=== PATIENT | female | born 1955 | race Caucasian/White ===

== ENCOUNTER → 2021-06-15 13:03 | Outpatient (BNVA) | payer MEDICARE, SELFPAY | PROVIDERS: Visit Provider Nurse Practitioner Family | DX: Z13.6 Encounter for screening for cardiovascular disorders (principal); Z12.4 Encounter for screening for malignant neoplasm of cervix; R53.83 Other fatigue | CPT/HCPCS: 80053; 80061; 82306; 82607; 83735; 84439; 84443; 85025; 87624 ==

== ENCOUNTER 2021-07-01 08:18 | Outpatient (CLI) | payer MEDICARE, SELFPAY ==
--- NOTE | 2021-07-01 09:00 | MM_ITS ---
WS: [id number] BILATERAL DIGITAL SCREENING MAMMOGRAPHY WITH CAD CLINICAL INFORMATION: Z12.39 - Encounter for other screening for malignant neop... HISTORY: Screening mammogram. Occasional breast pain and soreness COMPARISON: None. TECHNIQUE: Bilateral CC and MLO views. FINDINGS: Scattered fibroglandular densities bilaterally. Punctate and lucent centered calcifications. No suspi cious focal mass, asymmetry, calcifications, or architectural distortion. No evidence of malignancy. MM/[place] [id number] IMPRESSION: BI-RADS: 2-Benign FOLLOW UP: 1 Year Follow-up Recommend return to annual screening mammography.
== END 2021-07-01 08:19 | disposition home or self-care (01) ==
LOC: RADSHAW 08:21
PROVIDERS: PCP Nurse Practitioner Family; Visit Provider Nurse Practitioner Family
DX: Z12.39 Encounter for other screening for malignant neoplasm of breast (principal)
CPT/HCPCS: 77067

== ENCOUNTER 2021-07-09 10:28 | Outpatient (CLI) | payer MEDICARE, SELFPAY ==
--- NOTE | 2021-07-09 15:15 | XR_ITS ---
WS: [id number] Exam: XR DEXA axial skeleton* [id number] Date/Time of Exam: 07/09/2021 10:35 AM Reason For Exam: Z78.0 - Asymptomatic menopausal state DEXA BONE DENSITOMETRY [employer] DEXA BONE DENSITOMETRY [employer] The L1-L4 bone mineral density measures 0.921 g/cm2. This corresponds to a T score of -2.2 and Z scor e of -1.3. Left femoral neck bone mineral density measures 1.047 g/cm2. This corresponds to T score of 0.3 and Z score of 1.1. Right femoral neck bone mineral density measures 1.009 g/cm2. This corresponds to a T score of 0.0 an d Z score of 0.8. Mean femoral neck bone mineral density measures 1.028 g/cm2. This corresponds to a T score of 0.2 and Z score of 0.9 XR/XR DEXA axial skeleton* [id number] IMPRESSION: Bone mineral density lies in the osteopenic range. Refer to detailed summary.
== END 2021-07-09 10:29 | disposition home or self-care (01) ==
PROVIDERS: PCP Nurse Practitioner Family; Visit Provider Nurse Practitioner Family
DX: Z78.0 Asymptomatic menopausal state (principal)
CPT/HCPCS: 77080

== ENCOUNTER → 2021-09-13 09:05 | Outpatient (BNVA) | payer MEDICARE, SELFPAY | PROVIDERS: PCP Nurse Practitioner Family; Visit Provider Surgery | DX: Z01.812 Encounter for preprocedural laboratory examination (principal); Z20.822 Contact with and (suspected) exposure to COVID-19 | CPT/HCPCS: 87635 ==

== ENCOUNTER 2021-09-16 08:02 | Day surgery (SDC) | payer MEDICARE, SELFPAY ==
[2021-09-13 13:50] VITALS: BMI 34.3
[2021-09-16 08:52] VITALS: BP 147/95; PULSE 93; RESP 16; TEMP 36.6; O2SAT 98
[2021-09-16] MEDS: sodium chloride 0.9% 1,000 ML 30 ML IV (08:58)
--- NOTE | 2021-09-16 09:09 | ANES.PREANE2 ---
Pre-Anesthetic Assessment Height/Weight: Height 1.63 m Weight 90.718 kg Temp Pulse Resp BP Pulse Ox 97.8 F 93 16 147/95 98 09/16/21 08:52 09/16/21 08:52 09/16/21 08:52 09/16/21 08:52 09/16/21 08:52 Operation Date: 09/16/21 09:30 Proposed Procedures p Colonoscopy 91744 Z12.11(Not Applicable) - Adeel Ann MD Was Beta Reagan taken within 24 hours: N/A Was Clonidine taken within 24 hours: N/A Last intake: Intake Last Liquid Date 09/15/21 Last Liquid Time 22:00 Last Solid Date 09/14/21 Last Solid Time 19:00 Social No alcohol and No tobacco Exam alert, oriented x 3, clear to auscultation bilaterally and regular rate & rhythm Airway Submandibular: within normal limits Cervical ROM: within normal limits Mallampati: Class II Dentition: false History/ROS No significant history except as noted Metabolic Morbid Obesity Anesthetic Plan ASA status: 2 Anesthesia: MAC Risk of > 500 ml blood loss (7ml/kg in children): No Medications/Allergies Home Medications Medication Instructions Recorded Confirmed Last Taken Type cholecalciferol (vitamin D3) 50 50 mcg PO DAILY #90 cap 06/22/21 09/16/21 09/13/21 Rx mcg (2,000 unit) capsule Allergies Allergy/AdvReac Type Severity Reaction Status Date / Time No Known Allergies Allergy Verified 09/01/21 14:49 Current Medications Generic Name Dose Route Start Last Admin Trade Name Freq PRN Reason Stop Dose Admin Sodium Chloride 1,000 mls @ 30 mls/hr 09/16/21 08:15 09/16/21 08:58 Sodium Chloride 0.9% IV 09/17/21 08:14 30 mls/hr .Q24H DEAN Administration PFSH Anesthesia Medical History No pertinent past medical history Surgical History History of cholecystectomy History of tubal ligation Family History Father Cancer Sister Diabetes Hypertension Brother Hypertension Social History Smoking and tobacco status: current every day smoker Alcohol intake: never Household members: spouse Housing: House Marital status: Number of children: 3 Data Anesthesia Cardiac Studies: No Data to Display
--- NOTE | 2021-09-16 09:26 | W.PM.OPSFHP ---
Same Day Surgery H&P Indication for Procedure/HPI DATE OF PROCEDURE: September 16, 2021 CHIEF COMPLAINT/INDICATIONFOR SURGICAL PROCEDURE: Screening colonoscopy PREOP DIAGNOSIS: Screening colonoscopy PLANNED PROCEDURE: Operation Date: 09/16/21 09:30 Proposed Procedures p Colonoscopy 21728 Z12.11(Not Applicable) - Adeel Ann MD This is a pleasant 66 years old female patient presents to my practice for screening colonoscopy, patient denies any family history of colon cancer or bleeding per rectum or nonintentional weight loss ROS All systems have been reviewed negative except as per the above per problem list Medications/Allergies* Allergies/Adverse Reactions Allergy/AdvReac Type Severity Reaction Status Date / Time No Known Allergies Allergy Verified 09/16/21 09:26 Current Medications: Generic Name Dose Route Start Last Admin Trade Name Freq PRN Reason Stop Dose Admin Sodium Chloride 1,000 mls @ 30 mls/hr 09/16/21 08:15 09/16/21 08:58 Sodium Chloride 0.9% IV 09/17/21 08:14 30 mls/hr .Q24H DEAN Administration Pertinent History/Comorbid Conditions* Medical History (Updated 09/01/21 @ 14:47 by HI Romero) No pertinent past medical history Surgical History (Updated 06/15/21 @ 10:01 by HI Romero) History of cholecystectomy History of tubal ligation Family History (Updated 06/15/21 @ 09:57 by Patrizia Eugene LPN, RT) Diabetes Sister Cancer Father Hypertension Sister Brother Social History Smoking and tobacco status: current every day smoker Alcohol intake: never Household members: spouse Housing: House Marital status: Number of children: 3 Pertinent Exam Findings alert, oriented x 3, clear to auscultation bilaterally, regular rate & rhythm and operative site marked (Abdominal examination nontender nondistended soft) Recommendations Surgery/Procedure today (Colonoscopy with possible biopsy) Other Plans: Plan of care; After thorough history and physical examination and reviewing the chart, plan to perform screening colonoscopy. I discussed with the patient in details the risks,benefits,alternatives and indications.The risk of aspiration, bleeding, soft tissue injury, perforation of the colon and other potential concomitant complications were explained to the patient in details,also the potential need for Laproscoy/Laparotomy to repair any related complications including but not limited to colectomy and or Closotomy.The patient understood this well and did agree to proceed. Rationale was carefully and clearly discussed with the patient.Appropriate informed consent have been reviewed and signed All questions have been answered and all concerns have been addressed to patient's satisfaction. Verbal and written Instructions were given to the patient for colonoscopy prep Coding Level of Care Code Acute Porter Sample Case for Shanae Huff
[2021-09-16 10:05] VITALS: BP 110/73; PULSE 74; RESP 16; TEMP 36.1; O2SAT 97
--- NOTE | 2021-09-16 10:17 | ANE.PACU2 ---
Inpatient post-anesthesia follow up: Airway intact: Yes Vital signs: Temperature 97 F Pulse Rate 74 Respiratory Rate 16 Blood Pressure 110/73 Pulse Oximetry 97 Oxygen Delivery Me thod Room Air Oxygen Flow Rate Fraction of Inspir ed Oxygen Hydration adequate: Yes Nausea and vomiting: No Pain level: 1 Mental status: Baseline
[2021-09-16 10:20] VITALS: BP 133/82; PULSE 67; RESP 18; O2SAT 96
== END 2021-09-16 10:35 | disposition home or self-care (01) ==
PROVIDERS: PCP Nurse Practitioner Family; Visit Provider Surgery
PROC: 0DJD8ZZ Inspection of Lower Intestinal Tract, Via Natural or Artificial Opening Endoscopic (ICD-10-PCS; CPT 45378; principal; 2021-09-16 09:30)
DX: Z12.11 Encounter for screening for malignant neoplasm of colon (principal); K57.30 Diverticulosis of large intestine without perforation or abscess without bleeding; D12.2 Benign neoplasm of ascending colon; D12.4 Benign neoplasm of descending colon; F17.210 Nicotine dependence, cigarettes, uncomplicated; E66.01 Morbid (severe) obesity due to excess calories; Z68.34 Body mass index [BMI] 34.0-34.9, adult; Z83.3 Family history of diabetes mellitus; Z82.49 Family history of ischemic heart disease and other diseases of the circulatory system
CPT/HCPCS: 45385; J2704; J7030

== ENCOUNTER 2021-10-04 12:00 | Outpatient (CLI) | payer MEDICARE, SELFPAY | END 2021-10-04 12:01 | disposition home or self-care (01) | LOC: SLEEP 10-05 12:20 | PROVIDERS: PCP Nurse Practitioner Family; Visit Provider Nurse Practitioner Family | DX: G47.30 Sleep apnea, unspecified (principal) | CPT/HCPCS: G0399 ==

== ENCOUNTER → 2022-02-11 12:24 | Outpatient (BNVA) | payer MEDICARE, SELFPAY | PROVIDERS: PCP Nurse Practitioner Family; Visit Provider Family Medicine | DX: G47.33 Obstructive sleep apnea (adult) (pediatric) (principal); M25.50 Pain in unspecified joint; R53.83 Other fatigue | CPT/HCPCS: 80053; 84443; 85025; 85651; 86140; 86618; 86666; 86757 ==

== ENCOUNTER → 2022-06-22 08:30 | Outpatient (BNVA) | payer MEDICARE, SELFPAY | PROVIDERS: PCP Nurse Practitioner Family; Visit Provider Otolaryngology | DX: M26.623 Arthralgia of bilateral temporomandibular joint (principal); H92.01 Otalgia, right ear; H93.13 Tinnitus, bilateral; F17.200 Nicotine dependence, unspecified, uncomplicated | CPT/HCPCS: 99203 ==

== ENCOUNTER 2022-07-13 13:05 | Outpatient (CLI) | payer MEDICARE, SELFPAY ==
--- NOTE | 2022-07-13 13:18 | MM_ITS ---
WS: [id number] BILATERAL 3D TOMOSYNTHESIS DIGITAL SCREENING MAMMOGRAPHY WITH CAD CLINICAL INFORMATION: SCREENING HISTORY: Screening mammogram. No current complaints. COMPARISON: July 01, 2021 TECHNIQUE: Bilateral CC and MLO views. FINDINGS: The breasts are composed of heterogeneous fibroglandular density tissue, which can limit the detectio n of small underlying mass lesions. No suspicious mass, asymmetry, calcifications, or architectural d istortion. No evidence of malignancy. Punctate and lucent centered calcifications. MM/[place] [id number] IMPRESSION: BI-RADS: 2-Benign FOLLOW UP: 1 Year Follow-up Recommend return to annual screening mammography.
== END 2022-07-13 13:06 | disposition home or self-care (01) ==
PROVIDERS: PCP Nurse Practitioner Family; Visit Provider Nurse Practitioner Family
DX: Z12.31 Encounter for screening mammogram for malignant neoplasm of breast (principal)
CPT/HCPCS: 77063; 77067

== ENCOUNTER → 2022-11-17 13:31 | Outpatient (BNVA) | payer MEDICARE, SELFPAY | PROVIDERS: PCP Nurse Practitioner Family; Referring Provider Nurse Practitioner Family; Visit Provider Student in an Organized Health Care Education/Training Program | DX: M17.0 Bilateral primary osteoarthritis of knee | CPT/HCPCS: 20610; 73560; 73565; 99204; J3301 ==

== ENCOUNTER → 2023-01-03 14:48 | Outpatient (BNVA) | payer MEDICARE, SELFPAY | PROVIDERS: PCP Nurse Practitioner Family; Visit Provider Nurse Practitioner Family | DX: R53.83 Other fatigue (principal); E55.9 Vitamin D deficiency, unspecified | CPT/HCPCS: 80053; 80061; 82306; 82607; 83735; 84443; 85025 ==

== ENCOUNTER → 2023-01-23 15:39 | Outpatient (BNVA) | payer MEDICARE, SELFPAY | PROVIDERS: PCP Nurse Practitioner Family; Visit Provider Nurse Practitioner Family | DX: M25.561 Pain in right knee (principal) | CPT/HCPCS: 73562 ==

== ENCOUNTER → 2023-02-23 08:02 | Outpatient (BNVA) | payer MEDICARE, SELFPAY | PROVIDERS: PCP Nurse Practitioner Family; Visit Provider Student in an Organized Health Care Education/Training Program | DX: M17.0 Bilateral primary osteoarthritis of knee (principal) | CPT/HCPCS: 20610; 99213; J3301 ==

== ENCOUNTER 2023-03-09 10:09 | Outpatient (CLI) | payer MEDICARE, SELFPAY ==
[2023-03-09] MEDS: iohexol 350 mg/mL 500 mL Btl (per mL) IV (10:17)
--- NOTE | 2023-03-09 10:30 | CT_ITS ---
WS: [id number] CT chest w con* [id number] HISTORY: R05.3 - Chronic cough TECHNIQUE: Axial imaging performed through the thorax. Coronal and sagittal reformats are submitted. All CT scans at [facility] use at least one of these dose optimization techniques: automated exposure control; mA and/or kV adjustment per patient size (includes targeted exams where dose is mat ched to clinical indication); or iterative reconstruction. CONTRAST: Omnipaque 350; 100 mL IV. DLP: 357.91 mGy.cm COMPARISON: None available. Lungs and central airway: No pulmonary mass or nodule. No pneumonia. Benign RIGHT middle lobe granulo ma. Perifissural nodule along the minor fissure. Pleura: Normal. No pleural effusion. Heart and pericardium: Normal size heart with increased pericardial fat. No RIGHT heart strain or per icardial effusion. Mediastinum and sonya: Mildly prominent mediastinal and hilar lymphoid tissue. Vessels: Mild atherosclerosis aorta. No aneurysm. Pulmonary artery size is top normal. There are a fe w scattered coronary artery calcifications. Chest wall and lower neck: Mildly enlarged thyroid extends substernal. Upper abdomen: Colon is interposed between the liver and the abdominal wall. Prior cholecystectomy. M ild hepatic steatosis. No adrenal mass. Osseous structures: Mild increase in thoracic kyphosis. Mild disc space narrowing. No destructive bon e lesions. CT/CT chest w con* [id number] IMPRESSION: 1. No acute pulmonary mass or pneumonia. 2. Mild atherosclerosis aorta. 3. Mild enlargement of the thyroid. 4. Hepatic steatosis.
== END 2023-03-09 10:10 | disposition home or self-care (01) ==
LOC: RAD 10:09
PROVIDERS: PCP Nurse Practitioner Family; Visit Provider Nurse Practitioner Family
DX: R05.3 Chronic cough (principal); I70.0 Atherosclerosis of aorta; E04.9 Nontoxic goiter, unspecified; K76.0 Fatty (change of) liver, not elsewhere classified
CPT/HCPCS: 71260; Q9967

== ENCOUNTER → 2023-03-27 11:16 | Outpatient (BNVA) | payer MEDICARE, SELFPAY | PROVIDERS: PCP Nurse Practitioner Family; Visit Provider Internal Medicine Cardiovascular Disease | DX: R07.9 Chest pain, unspecified (principal); M25.561 Pain in right knee; M25.562 Pain in left knee; R06.02 Shortness of breath; R03.0 Elevated blood-pressure reading, without diagnosis of hypertension; G47.33 Obstructive sleep apnea (adult) (pediatric); F17.210 Nicotine dependence, cigarettes, uncomplicated | CPT/HCPCS: 99204 ==

== ENCOUNTER 2023-03-31 10:14 | Outpatient (CLI) | payer MEDICARE, SELFPAY ==
--- NOTE | 2023-03-31 | ECG_ITS ---
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 Interpretive Statements NAME OF STUDY: LEXISCAN SESTAMIBI STRESS TEST INDICATION: [Chest Pain; Shortness of Breath ] PROCEDURE: At the baseline, the blood pressure was 133/97 mm Hg with a heart rate of 90 bpm and oxygen saturation of 93%. The electrocardiogram showed sinus rhythm, normal axis and poor anterior R wave progression. ??? The Lexiscan was infused over a period of 20 seconds. A total of 0.4 milligrams of Lexiscan was infused. The stress phase was continued for a total of 5 minutes. Heart rate at the end of the stress phase was 133 bpm with a blood pressure of 193/124 mm Hg and oxygen saturation of 91%. The EKG at the peak infusion revealed sinus tachycardia with no significant ST-T wave changes. ??? Sestamibi was injected 20 seconds after the Lexiscan infusion. ??? Blood pressure at the end of the recovery phase was 142/95 mm Hg with a heart rate of 90 beats per minute and oxygen saturation of 98%. ??? CONCLUSION: 1. No significant EKG changes with the LexiScan infusion. 2. No LexiScan induced chest pain or cardiac arrhythmia. 3. Normal blood pressure and heart rate response. 4. Sestamibi/sestamibi perfusion scan pending; see separate report. Electronically Signed On 04-02-2023 14:26:55 CDT by Katherin Tariq M.D. [id number]
[2023-03-31 10:41] VITALS: BMI 33.7
--- NOTE | 2023-03-31 10:49 | NMCV_ITS ---
NM aaron perf SPECT r/s* [id number] Olga Lidia Wiseman Age: 68 Gender: F : 1955 Exam Date: 03/31/2023 10:49 Ordering Phys: Katherin Tariq MD ([email or web address]) Technologist: NORY Finch Exam Location: [facility] Indications: CHEST PAIN, SHORTNESS OF BREATH STRESS TEST Please see separate stress test report in [facility] for full findings IMAGE PROTOCOL Rest/Stress 1 Exercise Day Radiopharmaceutical Dose (mCi) Administration Site Administered by Rest: Tc-99m 10.5 IV NORY Apple Sestamibi Stress:Tc-99m 32.5 IV NORY Finch Sestamidwayne Rest: 31-Mar-2023 60 Discovery 630 Stress: 31-Mar-2023 30 Discovery 630 Radiopharmaceutical was injected at 85 % maximum heart rate. Images obtained in supine and prone position. SPECT RESULTS Technical Quality: Excellent Raw Data Analysis: Normal Image Corrections: No attenuation or motion correction applied Summed Stress Score: 0 Summed Rest Score: 0 Summed Difference Score: 0 PERFUSION FINDINGS SPECT images demonstrate homogeneous tracer distribution throughout the myocardium. FUNCTIONAL RESULTS (calculated via Gated SPECT) Stress Image LV EF (%): 87 Stress EDV (mL):55 TID: 0.78 Stress ESV (mL):7 FUNCTIONAL FINDINGS: The left ventricle is normal in size. Transient Ischemia Dilatation of 0.78. The left ventricular ejection fraction is normal with a value of 87%. There is hyperdynamic left ventricular wall thickening. IMPRESSIONS 1. Myocardial perfusion imaging is normal. 2. Overall left ventricular systolic function is normal without regional wall motion abnormalities, LVEF=87%. 3. EKG portion of the study will be reported separately. 4. Scan indicates low risk for cardiac events. Katherin Tariq MD (Electronically Signed) Final Date: 02 April 2023 22:11 S
[2023-03-31 13:18] VITALS: BP 142/95; PULSE 90
== END 2023-03-31 10:15 | disposition home or self-care (01) ==
PROVIDERS: PCP Nurse Practitioner Family; Visit Provider Internal Medicine Cardiovascular Disease
DX: R07.9 Chest pain, unspecified (principal); R06.02 Shortness of breath
CPT/HCPCS: 36415; 78452; 93017; A9500

== ENCOUNTER → 2023-06-23 08:54 | Outpatient (BNVA) | payer MEDICARE, SELFPAY | PROVIDERS: PCP Nurse Practitioner Family; Visit Provider Physician Assistant | DX: M17.0 Bilateral primary osteoarthritis of knee | CPT/HCPCS: 20610; 99213; J3301 ==

== ENCOUNTER → 2023-07-05 15:21 | Outpatient (BNVA) | payer MEDICARE, SELFPAY | PROVIDERS: PCP Nurse Practitioner Family; Visit Provider Internal Medicine Cardiovascular Disease | DX: R07.9 Chest pain, unspecified (principal); I10 Essential (primary) hypertension; F17.210 Nicotine dependence, cigarettes, uncomplicated | CPT/HCPCS: 99214 ==

== ENCOUNTER 2023-08-01 10:02 | Outpatient (CLI) | payer MEDICARE, SELFPAY ==
--- NOTE | 2023-08-01 10:00 | MM_ITS ---
WS: [email or web address] VIEWS: MLO and CC views both breasts. 3D digital tomosynthesis is also included in this exam. Comparison made with prior exam of 07/01/2021, 07/13/2022.. Findings: There was no sign of mass, architectural distortion or suspicious calcification in either breast. The re are scattered areas of fibroglandular density Impression: MM/[place] [id number] BI-RADS: 1-Negative FOLLOW-UP: 1 Year Follow-up This mammogram was also analyzed by the Computer Aided Detection System R2 Imag e Process Control Operator.
== END 2023-08-01 10:03 | disposition home or self-care (01) ==
LOC: MOBLMAM 10:03
PROVIDERS: PCP Nurse Practitioner Family; Visit Provider Nurse Practitioner Family
DX: Z12.31 Encounter for screening mammogram for malignant neoplasm of breast (principal)
CPT/HCPCS: 77063; 77067

== ENCOUNTER → 2023-10-05 08:29 | Outpatient (BNVA) | payer MEDICARE, SELFPAY | PROVIDERS: PCP Nurse Practitioner Family; Visit Provider Physician Assistant | DX: M17.0 Bilateral primary osteoarthritis of knee (principal) | CPT/HCPCS: 20610; 99213; J3301 ==

== ENCOUNTER → 2024-01-04 08:02 | Outpatient (BNVA) | payer MEDICARE, SELFPAY | PROVIDERS: PCP Nurse Practitioner Family; Visit Provider Physician Assistant | DX: M17.0 Bilateral primary osteoarthritis of knee (principal); Z79.899 Other long term (current) drug therapy | CPT/HCPCS: 20610; 99213; J3301 ==

== ENCOUNTER → 2024-01-25 08:02 | Outpatient (BNVA) | payer MEDICARE, SELFPAY | PROVIDERS: PCP Nurse Practitioner Family; Visit Provider Physician Assistant | DX: M25.551 Pain in right hip (principal); M25.552 Pain in left hip; M70.61 Trochanteric bursitis, right hip | CPT/HCPCS: 20610; 73522; 99213; J3301; J3490 ==

== ENCOUNTER → 2024-02-05 12:47 | Outpatient (BNVA) | payer MEDICARE, SELFPAY | PROVIDERS: PCP Nurse Practitioner Family; Visit Provider Internal Medicine Cardiovascular Disease | DX: Z13.6 Encounter for screening for cardiovascular disorders (principal); R03.0 Elevated blood-pressure reading, without diagnosis of hypertension; R07.9 Chest pain, unspecified; I10 Essential (primary) hypertension; G47.33 Obstructive sleep apnea (adult) (pediatric); Z72.0 Tobacco use | CPT/HCPCS: 99213 ==

== ENCOUNTER → 2024-03-07 07:52 | Outpatient (BNVA) | payer MEDICARE, SELFPAY | PROVIDERS: PCP Nurse Practitioner Family; Visit Provider Student in an Organized Health Care Education/Training Program | DX: M17.0 Bilateral primary osteoarthritis of knee (principal) | CPT/HCPCS: 20610; 99213; J7318 ==

== ENCOUNTER → 2024-04-08 13:09 | Outpatient (BNVA) | payer MEDICARE, SELFPAY | PROVIDERS: PCP Nurse Practitioner Family; Visit Provider Nurse Practitioner Family | DX: I10 Essential (primary) hypertension (principal); E55.9 Vitamin D deficiency, unspecified; R00.2 Palpitations | CPT/HCPCS: 80053; 80061; 82306; 82607; 83735; 84443; 85025 ==

== ENCOUNTER → 2024-05-28 07:58 | Outpatient (BNVA) | payer MEDICARE, SELFPAY | PROVIDERS: PCP Nurse Practitioner Family; Visit Provider Physician Assistant | DX: M70.61 Trochanteric bursitis, right hip (principal) | CPT/HCPCS: 20610; 99213; J3301; J3490 ==

== ENCOUNTER 2024-08-08 09:00 | Outpatient (CLI) | payer MEDICARE, SELFPAY ==
--- NOTE | 2024-08-08 09:00 | MM_ITS ---
WS: [id number] BILATERAL SCREENING DIGITAL TOMOSYNTHESIS MAMMOGRAM WITH CAD HISTORY: SCREENING COMPARISON: 08/01/2023, 07/13/2022 Bilateral CC and MLO views with tomosynthesis and synthetic mammography submitted. Computer aided det ection analyzed. Breast composition: There are scattered areas of fibroglandular density. No suspicious masses, microc alcifications or architectural distortion. Benign calcifications in each breast. MM/MM scr BI tomosynthesis [id number] IMPRESSION: BI-RADS: 2 - Benign. FOLLOW UP: 1 Year Follow-up
== END 2024-08-08 09:01 | disposition home or self-care (01) ==
PROVIDERS: PCP Nurse Practitioner Family; Visit Provider Nurse Practitioner Family
DX: Z12.31 Encounter for screening mammogram for malignant neoplasm of breast (principal); R92.323 Mammographic fibroglandular density, bilateral breasts; R92.1 Mammographic calcification found on diagnostic imaging of breast
CPT/HCPCS: 77063; 77067

== ENCOUNTER → 2024-10-01 07:59 | Outpatient (BNVA) | payer MEDICARE, SELFPAY | PROVIDERS: PCP Nurse Practitioner Family; Visit Provider Physician Assistant | DX: M70.61 Trochanteric bursitis, right hip (principal); R03.0 Elevated blood-pressure reading, without diagnosis of hypertension | CPT/HCPCS: 99213 ==

== ENCOUNTER → 2024-10-15 09:01 | Outpatient (BNVA) | payer MEDICARE, SELFPAY | PROVIDERS: PCP Nurse Practitioner Family; Visit Provider Physician Assistant | DX: M25.562 Pain in left knee (principal); M17.12 Unilateral primary osteoarthritis, left knee | CPT/HCPCS: 73560; 73565; 99214 ==

== ENCOUNTER 2024-10-30 16:12 | Outpatient (CLI) | payer MEDICARE, SELFPAY ==
--- NOTE | 2024-10-30 16:30 | CT_ITS ---
WS: [id number] CT LEFT KNEE, NONCONTRAST TECHNIQUE: Noncontrast CT of the LEFT knee to include the LEFT hip and ankle. CLINICAL INFORMATION: M17.12 - Unilateral primary osteoarthritis, left knee COMPARISON: None. DLP: 948.[address] scans at [facility] use at least one of these dose optimization techniques: automated exposure control; mA and/or kV adjustment per patient size (includes targeted exams where dose is matched to clinical indication); or iterative reconstruction. FINDINGS: Sigmoid diverticulosis. Advanced tricompartmental arthritis LEFT knee. Moderate suprapatellar effusion with hypertrophic changes along the joint line. Hypertrophic patella. CT/CT knee LT [facility] [id number] IMPRESSION: Images obtained for preoperative purposes.
== END 2024-10-30 16:13 | disposition home or self-care (01) ==
PROVIDERS: PCP Nurse Practitioner Family; Visit Provider Student in an Organized Health Care Education/Training Program
DX: M17.12 Unilateral primary osteoarthritis, left knee (principal); K57.30 Diverticulosis of large intestine without perforation or abscess without bleeding; M25.462 Effusion, left knee; M22.8X2 Other disorders of patella, left knee
CPT/HCPCS: 73700

== ENCOUNTER → 2024-11-06 10:15 | Outpatient (BNVA) | payer MEDICARE, SELFPAY | PROVIDERS: PCP Nurse Practitioner Family; Visit Provider Student in an Organized Health Care Education/Training Program | DX: Z01.818 Encounter for other preprocedural examination (principal) | CPT/HCPCS: 36415; 80053; 80323; 81001; 85025 ==

== ENCOUNTER → 2024-12-03 09:53 | Outpatient (BNVA) | payer MEDICARE, SELFPAY | PROVIDERS: PCP Nurse Practitioner Family; Visit Provider Student in an Organized Health Care Education/Training Program | DX: M17.12 Unilateral primary osteoarthritis, left knee (principal); M25.561 Pain in right knee; M25.562 Pain in left knee | CPT/HCPCS: 99214 ==

== ENCOUNTER 2024-12-06 10:05 | Outpatient (CLI) | payer MEDICARE, SELFPAY ==
[2024-12-06 10:41] LABS: Basophils % 0.6 %; Eosinophils # 0.3 10^3/uL (0.0-0.8); Hematocrit 41.1 % (36-47); Lymphocytes # 1.9 10^3/uL (0.8-4.8); Lymphocytes % 38.2 %; Mean Corpuscular HGB Conc 34.1 g/dL (30-55); Mean Corpuscular Hemoglobin 32.4 pg (27-33); Mean Corpuscular Volume 95.1 fl (85-98); Mean Platelet Volume 9.1 fL (7.4-10.4); Monocytes # 0.4 10^3/uL (0.2-0.9); Monocytes % 8.5 %; Neutrophils # 2.39 10^3/uL (1.8-7.7); Neutrophils % 47.5 %; Nucleated Red Blood Cells % 0 %; Platelet Count 216 10^3/cmm (157-399); Red Blood Count 4.32 10^6/uL (3.85-5.65); Red Cell Distribution Width 12.8 % (12.1-15.1); White Blood Count 5.03 10^3/uL (3.29-11.43)
[2024-12-06 10:43] LABS: Bilirubin Urine Negative (Negative); Blood Urine Negative (Negative); Glucose Urine UA Negative (Normal); Ketones Urine Negative (Negative); Leukocyte Esterase Urine Negative (Negative); Nitrate Urine Negative (Negative); Protein Urine Negative (Negative); Specific Gravity, Urine 1.009 (1.005-1.030); Urine Appearance Clear (CLEAR); Urine Color Yellow (Yellow); pH Urine 6.5 (5-7)
[2024-12-06 10:48] LABS: Bacteria Urine 4+ /hpf; Hyaline Casts Urine 0-4 /lpf; RBC Urine 0-2 /hpf (0-2); Squamous Epithelial Cell Urine 0-5 /hpf (0-5); WBC Urine 0-5 /hpf (0-5)
[2024-12-06 10:59] LABS: Alanine Aminotransferase 15 U/L (0-33); Albumin Level 4.2 g/dL (3.5-5.2); Alkaline Phosphatase 66 U/L (35-105); Anion Gap 15.6 (5-19); Aspartate Amino Transferase 18 U/L (0-32); Blood Urea Nitrogen 14 mg/dL (8-23); Calcium 9.1 mg/dL (8.5-10.5); Carbon Dioxide 26 mmol/L (22-29); Chloride 95 mmol/L (98-107); Globulin 2.4 g/dL (1.3-4.6); Glucose 92 mg/dL (65-115); Osmolality Calculated 276 mOsm/kg (285-295); Potassium 3.6 mmol/L (3.5-5.1); Sodium 133 mmol/L (136-145); Total Bilirubin 1.1 mg/dL (0.15-1.2); Total Protein 6.6 g/dL (6.6-8.7)
== END 2024-12-06 10:06 | disposition home or self-care (01) ==
PROVIDERS: Family Medicine; PCP Nurse Practitioner Family; Visit Provider Student in an Organized Health Care Education/Training Program
DX: Z01.818 Encounter for other preprocedural examination (principal)
CPT/HCPCS: 36415; 80053; 80323; 81001; 85025

== ENCOUNTER → 2024-12-10 11:28 | Outpatient (BNVA) | payer MEDICARE, SELFPAY | PROVIDERS: PCP Nurse Practitioner Family; Visit Provider Family Medicine | DX: R82.71 Bacteriuria (principal); Z01.818 Encounter for other preprocedural examination | CPT/HCPCS: 81003; 87086 ==

== ENCOUNTER 2024-12-16 09:24 | Observation (INO) | payer MEDICARE, SELFPAY ==
[2024-12-16] VITALS (15 sets, daily range): BP systolic 97–154; BP diastolic 45–86; PULSE 58–71; RESP 15–22; TEMP 36.2–36.7; O2SAT 94–100; BMI 32.1
[2024-12-16] MEDS: acetaminophen 1,000 MG/100 ML PIGGYBACK 400 MG IV ×3 (06:16→21:10)
[2024-12-16] MEDS: sodium chloride 0.9% 1,000 ML 30 ML IV (06:17)
[2024-12-16] MEDS: ketorolac 30 mg/mL INJ IVP (06:17)
[2024-12-16 06:39] LABS: Basophils % 0.5 %; Eosinophils # 0.3 10^3/uL (0.0-0.8); Eosinophils % 5.1 %; Hematocrit 44.8 % (36-47); Lymphocytes # 1.9 10^3/uL (0.8-4.8); Lymphocytes % 28.5 %; Mean Corpuscular HGB Conc 33.7 g/dL (30-55); Mean Corpuscular Hemoglobin 32.6 pg (27-33); Mean Corpuscular Volume 96.8 fl (85-98); Mean Platelet Volume 9.6 fL (7.4-10.4); Monocytes # 0.6 10^3/uL (0.2-0.9); Monocytes % 9.2 %; Neutrophils # 3.66 10^3/uL (1.8-7.7); Neutrophils % 56.1 %; Nucleated Red Blood Cells % 0 %; Platelet Count 252 10^3/cmm (157-399); Red Blood Count 4.63 10^6/uL (3.85-5.65); Red Cell Distribution Width 13.3 % (12.1-15.1); White Blood Count 6.52 10^3/uL (3.29-11.43)
--- NOTE | 2024-12-16 06:48 | ANES.PREANE2 ---
Pre-Anesthetic Assessment Height/Weight: Height 1.63 m Weight 84.822 kg Temp Pulse Resp BP Pulse Ox O2 Del Method 97.2 F L 67 18 154/86 100 Room Air 12/16/24 06:03 12/16/24 06:03 12/16/24 06:03 12/16/24 06:03 12/16/24 06:03 12/16/24 06:10 Preop Diagnosis: DJD Left Knee Operation Date: 12/16/24 07:00 Proposed Procedures p Hector Robot Total Knee Arthroplasty(Left) - Yogi Boo DO Familial anesthetic complications: none Was Beta Reagan taken within 24 hours: N/A Was Clonidine taken within 24 hours: N/A Last intake: Intake Last Liquid Date 12/04/24 Last Liquid Time 21:30 Last Solid Date 12/15/24 Last Solid Time 16:00 Social Tobacco and No alcohol 1/2 PPD pack(s) per day Exam alert, oriented x 3, clear to auscultation bilaterally and regular rate & rhythm Airway Submandibular: within normal limits Cervical ROM: within normal limits Mallampati: Class II Dentition: false History/ROS No significant history except as noted and No significant complaints Pulmonary Sleep Apnea CPAP at night CV/HEM Hypertension None reported Hepatic None reported GI None reported Metabolic None reported Musc/skel None reported Neuropsych None reported Anesthetic Plan ASA status: 3 Anesthesia: Regional (specify below) Other: Spinal Risk of > 500 ml blood loss (7ml/kg in children): No Medications/Allergies Home Medications ?Medication ?Instructions ?Recorded ?Confirmed ?Last Taken ?Type cholecalciferol (vitamin D3) 50 50 mcg PO DAILY #90 caps 06/22/21 12/13/24 12/12/24 Rx mcg (2,000 unit) capsule Auto-titrating CPAP 6-14cm #1 ea 12/06/21 12/03/24 Unknown Rx acetaminophen 650 mg 650 mg PO Q12H PRN Pain 03/27/23 12/13/24 12/13/24 History tablet,extended release (Arthritis Pain Relief (acetaminophen) ER) potassium gluconate 600 mg (99 mg) 600 mg PO DAILY 03/27/23 12/13/24 12/12/24 History tablet chlorthalidone 25 mg tablet 25 mg PO DAILY #90 tabs 04/08/24 12/13/24 12/12/24 Rx multivitamin (Daily Multi-Vitamin 1 tab PO DAILY 12/10/24 12/13/24 12/12/24 History tablet) meloxicam 15 mg tablet 15 mg PO DAILY 12/13/24 12/13/24 12/10/24 History Allergies Allergy/AdvReac Type Severity Reaction Status Date / Time No Known Allergies Allergy Verified 12/10/24 10:26 Current Medications Generic Name Dose Route Start Last Admin Trade Name Freq PRN Reason Stop Dose Admin Sodium Chloride 1,000 mls @ 30 mls/hr 12/16/24 06:00 12/16/24 06:17 Sodium Chloride 0.9% IV 12/17/24 05:59 30 mls/hr .Q24H DEAN Administration PFSH Anesthesia Medical History HTN (hypertension) Obstructive sleep apnea No pertinent past medical history Surgical History History of tubal ligation History of cholecystectomy Family History Father Cancer Sister Diabetes Hypertension Brother Hypertension Social History Smoking and tobacco/nicotine status: current some day tobacco/nicotine user cigarettes Packs smoked per day: 1 Years cigarettes smoked: 20 [ Other cigarette details: Quit for approx 15 years & restarted after juanan and father ] Second hand smoke exposure: No Alcohol intake: never Substance/Drug Use: unknown Adopted: No Caregiver/support person: No Lives independently: Yes Household members: spouse Housing: House Marital status: Number of children: 3 Highest education level completed: High School Graduate service: No Current occupational status: retired Do you think of yourself as: Straight/Heterosexual Current gender identity: Female Data Anesthesia 12/16/24 06:25 12/16/24 06:25 Short CBC 12/16/24 Range/Units 06:25 WBC 6.52 (3.29-11.43) 10^3/uL Hgb 15.10 (11.27-16.99) g/dL Hct 44.8 (36-47) % MCV 96.8 (85-98) fl Plt Count 252 (157-399) 10^3/cmm Neut % (Auto) 56.1 % Neut # (Auto) 3.66 (1.8-7.7) 10^3/uL Cardiac Studies: Sestamibi Stress Test (Cardiology) 03/31/23 Cardiac Event Monitor 05/14/24
--- NOTE | 2024-12-16 06:55 | PC.NURSE ---
0645: left knee nerve block performed by MARICEL. 30 ml of 0.5 % ropivicaine, 4 of decadron using ultrasound guidance
[2024-12-16 06:58] LABS: Anion Gap 15.6 (5-19); Blood Urea Nitrogen 10 mg/dL (8-23); Calcium 9.4 mg/dL (8.5-10.5); Carbon Dioxide 24 mmol/L (22-29); Chloride 102 mmol/L (98-107); Creatinine Clr Calc Pharmacy 67.9656; Glucose 98 mg/dL (65-115); Osmolality Calculated 285 mOsm/kg (285-295); Potassium 3.6 mmol/L (3.5-5.1); Sodium 138 mmol/L (136-145)
--- NOTE | 2024-12-16 07:00 | P.HPUD_ITS ---
Surgery/Procedure H&P Update DATE OF PROCEDURE: December 16, 2024 DATE H&P PERFORMED: 12/03/24 H&P UPDATE INFORMATION: I have reviewed H&P completed within last 30 days, I have examined patient prior to procedure and No changes to prior documentation CHANGES TO PREVIOUS DOCUMENTATION: Patient is cleared the preoperative clearance process. She has been medically optimized. At this point in time we had a discussion she has significantly de creased her smoking nearly non-smoking at all however her does smoke and she does have secondhand smoke recheck of her nicotine has showed consistent improvement we talked about this in detail and at this point in time this has been significantly debilitating as far as her knee goes and she is ready to proceed with a left total knee arthroplasty. She understands the exams procedure risk benefits complication alternatives of surgery and through shared decision-making like to proceed with surgical invention. All questions have been answered at this time. She understands if she does continues to keep smoking/increased but this can cause some increased risk and difficulty with healing and possible increased risk of infection. Understanding this risk she elects proceed all questions answered at this time. PREOP DIAGNOSIS: DJD Left Knee PRIMARY INDICATION FOR PROCEDURE: Left knee DJD PLANNED PROCEDURE: Operation Date: 12/16/24 07:00 Proposed Procedures p Hector Robot Total Knee Arthroplasty(Left) - Yogi Boo DO
[2024-12-16] MEDS: ceFAZolin 2,000 MG in sodium chloride 0.9% (plus) 50 ML 100 MG IV ×3 (07:01→23:10)
--- NOTE | 2024-12-16 07:07 | ANES.PROC ---
Anesthesia Procedures Procedure/Date: 12/16/24 Nerve Block ^: Nerve Block 1: Main Anesthesia: general anesthesia Time Out Performed: Yes Consent: requested by attending/covering physician, from patient, from other, risks and benefits reviewed and patient agrees to proceed Nerve block location: adductor canal (L) Anesthesia monitors applied: pulse oximetry, EKG, BP cuff and oxygen Nerve block position: supine Anesthetic Used: ropivicaine 0.5% (30 ml) and with decadron (4 mg) Ultrasound used to: recognize landmarks and visualize and ID femerol nerve Nerve Stimulator Used?: No Interscalene/Femoral BLK: 4 stimuplex 21 g needle used for position and inplane approach, visualize local anesthetic spread and no vascular puncture identified Patient Tolerated Procedure: well Complications: none Other Information: Diagnosis: DJD L knee
[2024-12-16] MEDS: tranexamic acid 1,000 mg/10mL SDV 1000 MG IV (07:30)
[2024-12-16] MEDS: EPINEPHrine 1 mg/mL INJ XX (08:15)
[2024-12-16] MEDS: tranexamic acid 1,000 mg/10mL SDV 1000 MG XX (08:15)
[2024-12-16] MEDS: ketorolac 30 mg/mL INJ XX (08:15)
[2024-12-16] MEDS: ROPivacaine 0.2% Premix 100 mL 200 MG INTRA-ARTI (08:15)
[2024-12-16] MEDS: VANCOMYCIN ADD-Vantage 1,000 MG VIAL 1000 MG XX (08:16)
--- NOTE | 2024-12-16 09:25 | XRR_ITS ---
PROCEDURE INFORMATION: Exam: XR Left Knee Exam date and time: 12/16/2024 9:32 AM Age: 69 years old Clinical indication: Device placement; Joint replacement hardware; Prior surgery; Surgery date: Post-operative (0-2 days); Surgery type: L tka; Additional info: Post L tka, do in pacu TECHNIQUE: Imaging protocol: Radiologic exam of the left knee. Views: 1 or 2 views. COMPARISON: CT knee LT [facility] [id number] 10/30/2024 4:23 PM FINDINGS: Bones/joints: Total knee arthroplasty is in expected position. No acute fracture. Soft tissues: Air in the soft tissues from recent surgery. XR/XR knee LT 1-2V [id number] IMPRESSION: Postoperative changes from total knee arthroplasty without evidence of acute osseous abnormality.
--- NOTE | 2024-12-16 09:31 | W.PM.BPON ---
Date of Procedure: [December 16, 2024] Surgeon: [Dr. Boo DO] Instructor Military Science(s): [Aaron Boo PA-C] Procedure(s) performed: [Left total knee arthroplasty with Hector robotic assist] Findings of the procedure(s): [Left knee degenerative joint disease. Procedure went well and as planned.] Estimated blood loss: [25 mL] Specimen(s) removed: [N/A] Post-operative diagnosis: [Left knee degenerative joint disease]
--- NOTE | 2024-12-16 09:36 | PM.PACU ---
PACU note Narrative: Patient is a 69-year-old female who just underwent a left total knee arthroplasty. Pt transferred to PACU in stable condition. Dressing is dry. pt is awake and alert. Distal pulses are palpable toes are warm and well-perfused. Cap refill is normal and under 2 seconds. Unable to assess any further motor or sensation to left leg due to residual spinal block. Pain is controlled. Exam: awake Disposition: admitted
--- NOTE | 2024-12-16 09:48 | P.OP_ITS ---
Operative Report Date of procedure: December 16, 2024 Surgeon: Yogi Boo DO Property Accountant: Aaron Boo PA-C: PA was necessary for assistance in this case with leg positioning retraction and protection of neurovascular structures as well as assistance in implantation wound closure and dressing application. Procedure: Preoperative diagnosis: Left knee degenerative joint disease Post-op diagnosis: Same Procedure done: Left total knee arthroplasty, cemented?robotic assisted Hector Implants: Bong triathlon size 5 femur CR cemented?left Bong triathlon size? 4 tibia universal baseplate cemented Mccloud triathlon symmetric patella size 31 mm Mccloud triathlon polyethylene 10mm Surgeon: Yogi Boo DO Estimated blood?loss: 25 mL Tourniquet 57 minutes IV fluids: 1600 mL Urine output: 400 mL Complications: None Condition: stable Disposition: floor Brief History: Patient is a 69-year-old female with with chronic?left knee degenerative joint d isease.? Patient has been worked up in the outpatient setting in the orthopedic office at this point time through shared decision making given? [id number] arthritis as well as failed conservative treatment, and pt would?like to proceed with a?left total knee arthroplasty.? Through shared decision making elected to proceed with surgical intervention for?left total knee arthroplasty with Hector robotic assisted.? We talked about continued conservative treatment and surgical intervention as far as the risk benefits complications alternatives surgical and nonsurgical treatment options.? At this point time understanding patient risks with surgery patient agrees to proceed with surgical intervention.? Once again? risk with surgery include but are not?limited to make it better make it worse blood clot, heart attack, stroke, on the table, infection, injury to nerves or vessels, persistent pain, arthrofibrosis, implant failure.? Understanding these risks patient agrees to proceed with surgical intervention consent was obtained in the preoperative holding area.? All questions answered. Procedure: Patient was seen and evaluated in the preoperative holding area.? Consent was reviewed and signed with patient with plan for?left total knee arthroplasty.? All questions answered.? Correct extremity marked.? Patient seen and evaluated by the anesthesia department and once cleared for surgery was taken back to the operative suite.? Patient was placed into a supine position on the OR table.? All bony prominences were well-padded.? Patient was appropriately secured to the bed.? Patient underwent anesthesia per the anesthesia department.? Patient received spinal anesthesia and? Bañuelos catheter was placed.? A nonsterile tourniquet was applied to the?left thigh.? At this point in time a final timeout performed.? Patient received appropriate preoperative antibiotics and TXA. Next the?left?lower extremity was then prepped and draped in standard orthopedic fashion. Esmarch tourniquet was used exsanguinate the?left?lower extremity.? Tourniquet was insufflated to 250 mmHg. A standard anterior incision was made over midline of the knee.? Sharp scalpel excision through skin and subcutaneous tissue full-thickness skin flaps were made.? Fascia was elevated off of the extensor retinaculum was stable with medial parapatellar arthrotomy was then made.? The performed standard sequential releases..? Immediately on entry into the joint patient was found to have severe eburnated bone and tricompartmental arthritic changes noted.? With significant osteophyte formation.? Next the the patella was then stuffed and the knee was then flexed.?? Tyrese was placed superiorly around the anterior aspect of the femur this was freed of synovium and I subsequently then placed by 2 femur pins to establish my femur arrays for the Hector robot.? These were then placed bicortically and? femur array was then appropriately secured with appropriate visualization.? Next attention was turned towards the tibial rays.? These were then drilled sequentially bicortically in parallel fashion and intraincisional.? I then placed my guide as well as my tibial array on in place.? This was appropriately secured and had excellent visualization with the Hector robot.? Next the tibial checkpoint as well as femur checkpoint were then placed.? At this point time I then subsequently established my head center as well as my medial?lateral malleoli as well as my checkpoints.? Next utilizing standard Hector technology I then mapped out the appropriate points and confirmation points around the femur as well as the tibia in standard fashion.? Once this was then done I then removed all osteophytes in preparation for dynamic testing.? All osteophytes were removed as well as I removed the ACL and the PCL was excised due to its significant tearing and degeneration noted.? At this point time the knee was brought into full extension and we performed our standard evaluation of our gap balancing stressing his?ligaments and extension as well as flexion appropriate adjustments were made to have appropriate gap balancing in both flexion and extension.? Patient had varus deformity and underwent ligament alexis ncing and correction of deformity to patient's ligamentous tolerances. This plan for final cuts.? We get a preoperative plan evaluating our implants which was a size 5 femur and a size 4 tibia.? Next we brought in the Hector robot and sequentially made our femur cuts.? All excess bony cuts were then removed.? Finally we made our tibial cut.? Once this was done a standard PCL retractor was then placed into this position I excised the medial and?lateral meniscus.? The tibial cut was then subsequently removed all excess bony debris was removed.? I then utilized a?lamina balance screwhead polisher and remove the posterior osteophytes.? At this point time sized the tibia and confirmed this was a size 4.? I utilized our blunt probe to establish rotation of tibial implant.? Once this was done I then placed my tibia size 4 trial in appropriate position and then subsequently placed tibial pins to hold this into place placed and trialed up to a size 10 mm poly as well as a size 5 femur which was appropriately impacted in place knee was then subsequently brought into extension. Trials were then assessed,? this was stable with varus valgus stress in extension as well as had symmetrical translation when brought into flexion demonstrating symmetrical gaps. I had excellent balance gaps in flexion and extension with varus and valgus stresses.? At this point I was satisfied with these implants these were then verified and opened on the back table size 4 tibia, size 5 femur,? size 10 mm polythickness.? We did confirm appropriate gap balancing and stresses as well as alignment utilizing? Hector and were satisfied with this plan.? ?At this point time with my trials in place I then towel clip the patella everted this made appropriate measurements subsequently utilizing freehand technique performed by patellar resurfacing this was confirmed to be appropriate resection and subsequently sized to be a 31 mm symmetric.? My drill peg guides were then clamped and appropriate position and appropriate position in the patella for appropriate tracking and parallel with the joint.? Pegs were drilled trial implant was placed and the knee was then subsequently ranged and found to have excellent patellar tracking.? Femur pegs were then drilled.? At this point time all of our trial implants were removed.? All checkpoints as well as guidepins and arrays were removed and appropriate counts made.?Satisfied with ou r tibial placement rotation I then utilized the keel punch and prepped the tibia.? The wound bed? was thoroughly irrigated and dried and prepped for cementation.? Cement was mixed on the back table.? Once cement was ready this was then covered onto the tibia and the tibial baseplate was then impacted and all excess cement was removed.? Next the polyethylene was then impacted into place on the tibial baseplate.? Next cement was placed onto the femur as well as under the femur implants and impacted in to place and all excess cement was extruded and removed.? Knee was taken into full extension? to clear all excess cement was removed.? Warm saline was placed over the joint.? I then towel clip patella and dried for cementation. cemented the patella into place.? This was all clamped and the cement was allowed to cure.? Thorough irrigation performed with pulse?lavage.? I then placed my periarticular injection while the cement was curing.? Once cured the knee was taken through range of motion and had excellent stability and gaps were balanced in flexion and extension.? Tourniquet was then deflated. hemostasis satisfactory with electrocautery.? Vancomycin powder was placed in the wound bed for antibiotic infection prophylaxis. Next I then subsequently closed the capsule with Ethibond suture as well as a running strata fix suture.? Knee was then taken through range of motion 30 times.? Next the skin was then closed in?layered fashion of running stratifix sutures of deep and subcutenous tissue and skin.? ?closed in flexion and Prineo glue was then placed over the incision this allowed to cure.? Incision was covered with karmen incisional VAC dressing, with ABDs soft roll and Raul wrap.? Patient was then awakened from anesthesia and taken to PACU in stable condition. Disposition: Patient taken to PACU in stable condition will be admitted to the floor for pain control PT/OT weight-bear as tolerated?left?lower extremity dressing changes as needed, DVT prophylaxis. Pain control. Patient will receive appropriate postoperative antibiotics. patient will be seen today by the internal medicine team for medical management.? Patient will follow up with the office in 2 weeks.? Patient understands agrees with current plan.? All questions answered.
--- NOTE | 2024-12-16 10:00 | ANE.PACU2 ---
Inpatient post-anesthesia follow up: Airway intact: Yes Vital signs: Temperature 97.2 F Pulse Rate 61 Respiratory Rate 20 Blood Pressure 135/55 Pulse Oximetry 99 Oxygen Delivery Me thod Room Air Oxygen Flow Rate 2 Fraction of Inspir ed Oxygen Hydration adequate: Yes Nausea and vomiting: No Pain level: 1 Mental status: Baseline
--- NOTE | 2024-12-16 10:51 | PM.CONSULT ---
Providers/Reason For Consult Consulting Physician/Specialty*: Hospitalist Reason for Consult*: Medical management Attending Physician: Yogi Boo DO Primary Care Provider: HI Romero History of Present Illness History of Present Illness Very pleasant 69-year-old lady with history of HTN, SHASTA on nightly CPAP, smoking, underwent left TKA due to advanced degenerative arthritis with reported uneventful procedure, EBL 25 mL, she is awake and alert post operatively, denies any complaints, no shortness of breath, chest pain or pressure, pain is under control. Review of Systems Const: Denies: fever(s), chills, body aches or malaise ENMT: Denies: throat pain Card: Denies: chest pain, edema, pre-syncope or dyspnea on exertion Resp: Denies: dyspnea, productive cough, change in phlegm color or hemoptysis GI: Denies: abdominal pain, nausea, vomiting, diarrhea, constipation, hematochezia or melena : Denies: flank pain, urinary frequency or hematuria Musc: Denies: back pain, joint swelling or joint redness Skin/Breast: Denies: rash or new lesions Neuro: Denies: headache(s) or confusion Medications/Allergies Home Medications ?Medication ?Instructions ?Recorded ?Confirmed ?Last Taken ?Type cholecalciferol (vitamin D3) 50 50 mcg PO DAILY #90 caps 06/22/21 12/13/24 12/12/24 Rx mcg (2,000 unit) capsule Auto-titrating CPAP 6-14cm #1 ea 12/06/21 12/03/24 Unknown Rx acetaminophen 650 mg 650 mg PO Q12H PRN Pain 03/27/23 12/13/24 12/13/24 History tablet,extended release (Arthritis Pain Relief (acetaminophen) ER) potassium gluconate 600 mg (99 mg) 600 mg PO DAILY 03/27/23 12/13/24 12/12/24 History tablet chlorthalidone 25 mg tablet 25 mg PO DAILY #90 tabs 04/08/24 12/13/24 12/12/24 Rx multivitamin (Daily Multi-Vitamin 1 tab PO DAILY 12/10/24 12/13/24 12/12/24 History tablet) meloxicam 15 mg tablet 15 mg PO DAILY 12/13/24 12/13/24 12/10/24 History Allergies Allergy/AdvReac Type Severity Reaction Status Date / Time No Known Allergies Allergy Verified 12/10/24 10:26 PFSH Acute PFSH: Medical History HTN (hypertension) Obstructive sleep apnea No pertinent past medical history Surgical History History of tubal ligation History of cholecystectomy Family History Father Cancer Sister Diabetes Hypertension Brother Hypertension Social History Smoking and tobacco/nicotine status: current some day tobacco/nicotine user cigarettes Packs smoked per day: 1 Years cigarettes smoked: 20 [ Other cigarette details: Quit for approx 15 years & restarted after husabdn and father ] Second hand smoke exposure: No Alcohol intake: never Substance/Drug Use: unknown Adopted: No Caregiver/support person: No Lives independently: Yes Household members: spouse Housing: House Marital status: Number of children: 3 Highest education level completed: High School Graduate service: No Current occupational status: retired Do you think of yourself as: Straight/Heterosexual Current gender identity: Female Vitals/I&O/Wt Last Vital Signs Temp 97.2 F L 12/16/24 09:58 Pulse 61 12/16/24 09:58 Resp 20 H 12/16/24 09:58 BP 135/55 12/16/24 09:58 Pulse Ox 99 12/16/24 09:58 O2 Del Method Nasal Cannula 12/16/24 09:58 O2 Flow Rate 2 12/16/24 09:58 12/15/24 12/16/24 12/16/24 22:59 06:59 14:59 Intake Total 100 / 100 1700 / 1700 Output Total 425 / 425 Balance 100 / 100 1275 / 1275 Weight last 48 hrs Weight 84.822 kg Physical Exam Const: COMMON NORMALS: patient oriented x3 and alert GENERAL APPEARANCE: cooperative ORIENTATION/CONSCIOUSNESS: Yes awake HENMT: COMMON NORMALS: oropharynx normal Neck/C-Spine: COMMON NORMALS: no JVD Resp: COMMON NORMALS: normal respiratory effort and clear to auscultation bilaterally AUSCULTATION: clear to auscultation bilaterally Cardio: COMMON NORMALS: no JVD, regular rhythm, S1 normal heart sound present, S2 normal heart sound present and No murmurs present (Cardio) RHYTHM: regular rhythm HEART SOUNDS: S1 normal heart sound present and S2 normal heart sound present GI: COMMON NORMALS: Normal to inspection, nondistended, normoactive bowel sounds present, Soft to palpation and non-tender PALPATION: Yes Soft to palpation Extremity: COMMON NORMALS: no joint enlargement and no pedal edema NARRATIVE EXTREMITY EXAM: Left lower extremity in postoperative dressing with a wrap going down to the foot. Cool pack. Able to wiggle her toes. No proximal erythema swelling or bruising. Neuro: COMMON NORMALS: patient oriented x3 and moves all extremities SENSORIUM/ORIENTATION: Yes alert Skin: COMMON NORMALS: no rashes or lesions noted GENERAL SKIN EXAM: no rashes or lesions noted Urinary Catheter Management: Bañuelos: Cath Placed During This Visit: yes Urinary Catheter Date of Insertion: 12/16/24 Urinary Catheter Time of Insertion: 07:22 Data 12/16/24 06:25 12/16/24 06:25 A&P Assessment and plan (1) Status post left knee replacement: Reviewed vitals, CBC, CMP, orthopedic note, discussed with orthopedic surgeon, uneventful procedure, able 25 mL. She is started on Eliquis. Continues with postoperative care, pending PT assessment. Tentative discharge plans are for return home. Pain currently under control. Oxycodone as needed for moderate pain, IV Dilaudid as needed for severe breakthrough. Incentive spirometer. DC Bañuelos once mobilizing. Reassess blood counts reassess anemia. Monitor for risk of bleeding with initiation of Eliquis. Will stop IV fluid. Reassess chemistry. Plan SHASTA: Continue nightly CPAP. She brought her machine. Requested. Smoking: Discussed smoking cessation for 3 and half minutes. She has been cutting down, down to half pack a day. It has been difficult to quit. She knows she should quit due to risk of comorbidities not excluding heart disease, lung disease, various cancers. She is agreeable to nicotine patch, she has tried lozenges and cannot use them. HTN: Monitor blood pressures. PDMP PDMP Reviewed: Not Reviewed Consult Attestations Medical Necessity Statement: Continue hospitalization following left knee TKA. and High MDM includes amount and/or complexity of data reviewed/ordered [ previous or external records, resulted lab(s)/test(s), ordered lab(s)/test(s) and other healthcare professional discussion] and described risk of complication, morbidity or mortality of management as documented Diagnoses Status post left knee replacement Z96.652
[2024-12-16] MEDS: nicotine 14 mg Patch 1 PATCH TRANSDERMA (11:48)
[2024-12-16] MEDS: chlorhexidine gluconate 0.12% Btl 473 mL 30 ML MUCOUS MEM ×3 (14:14→21:14)
[2024-12-16] MEDS: tranexamic acid 1,000 MG/100 ML PREMIX 600 MG IV (16:56)
[2024-12-16] MEDS: docusate sodium 100 mg Capsule PO (18:39)
[2024-12-16] MEDS: mupirocin oint 22 gm 1 APPLIC NASAL (18:40)
[2024-12-16] MEDS: calcium carb-vit d 600mg/400unit 1 Tablet 1 EACH PO (18:40)
[2024-12-16] MEDS: iron polysaccharide complex 150 mg Capsule PO (18:40)
[2024-12-16] MEDS: HYDROmorphone 0.5 MG/0.5 ML INJ IVP (19:42)
[2024-12-17 05:00] VITALS: BP 127/81; PULSE 57; RESP 16; TEMP 36.4; O2SAT 98
[2024-12-17 05:41] LABS: Basophils % 0.2 %; Eosinophils # 0.1 10^3/uL (0.0-0.8); Eosinophils % 0.8 %; Lymphocytes % 22.1 %; Mean Corpuscular HGB Conc 34.2 g/dL (30-55); Mean Corpuscular Hemoglobin 33.2 pg (27-33); Mean Platelet Volume 9.8 fL (7.4-10.4); Monocytes # 0.7 10^3/uL (0.2-0.9); Monocytes % 7.3 %; Neutrophils % 69.4 %; Nucleated Red Blood Cells % 0 %; Platelet Count 216 10^3/cmm (157-399); Red Blood Count 3.71 10^6/uL (3.85-5.65); Red Cell Distribution Width 13.3 % (12.1-15.1); White Blood Count 8.94 10^3/uL (3.29-11.43)
[2024-12-17 06:01] LABS: Blood Urea Nitrogen 11 mg/dL (8-23); Calcium 9.3 mg/dL (8.5-10.5); Carbon Dioxide 23 mmol/L (22-29); Chloride 101 mmol/L (98-107); Creatinine Clr Calc Pharmacy 67.9656; Glucose 91 mg/dL (65-115); Osmolality Calculated 277 mOsm/kg (285-295); Sodium 134 mmol/L (136-145)
--- NOTE | 2024-12-17 07:40 | P.PN_ITS ---
Subjective 2 Subjective: She reports she is feeling well this morning. She worked with physical therapy yesterday and did well with walking around the unit and later ambulated in her room. She denies any shortness of breath, chest pain, or other discomfort or concerns. Vitals/I&O/Wt Last Vital Signs Temp 97.5 F L 12/17/24 05:00 Pulse 57 L 12/17/24 05:00 Resp 16 12/17/24 05:00 BP 127/81 12/17/24 05:00 Pulse Ox 98 12/17/24 05:00 O2 Del Method Room Air 12/17/24 05:00 O2 Flow Rate 2 12/16/24 09:58 12/16/24 12/17/24 12/17/24 22:59 06:59 14:59 Intake Total 50 / 1850 Output Total 1750 / 2575 200 / 2775 Balance -1700 / -725 -200 / -925 Weight last 48 hrs Weight 84.822 kg Physical Exam 2 Const: COMMON NORMALS: patient oriented x3 and alert GENERAL APPEARANCE: c ooperative ORIENTATION/CONSCIOUSNESS: Yes awake HENMT: COMMON NORMALS: oropharynx normal Neck/C-Spine: COMMON NORMALS: no JVD Resp: COMMON NORMALS: normal respiratory effort and clear to auscultation bilaterally AUSCULTATION: clear to auscultation bilaterally Cardio: COMMON NORMALS: no JVD, regular rhythm, S1 normal heart sound present, S2 normal heart sound present and No murmurs present (Cardio) RHYTHM: regular rhythm HEART SOUNDS: S1 normal heart sound present and S2 normal heart sound present GI: COMMON NORMALS: Normal to inspection, nondistended, normoactive bowel sounds present, Soft to palpation and non-tender PALPATION: Yes Soft to palpation Extremity: COMMON NORMALS: no joint enlargement and no pedal edema N ARRATIVE EXTREMITY EXAM: Left lower extremity in postoperative dressing with a wrap going down to the foot. Cool pack. Able to wiggle her toes. No proximal erythema swelling or bruising. Neuro: COMMON NORMALS: patient oriented x3 and moves all extremities S ENSORIUM/ORIENTATION: Yes alert Skin: COMMON NORMALS: no rashes or lesions noted GENERAL SKIN EXAM: no rashes or lesions noted Urinary Catheter Management: Bañuelos: Cath Placed During This Visit: yes, but has since been removed by the nurse Reason for Continuing Indwelling Catheter: Perioperative Use in Selected Surgeries Urinary Catheter Date of Insertion: 12/16/24 Urinary Catheter Time of Insertion: 07:22 Date Urinary Catheter Removed: 12/17/24 Time Urinary Catheter Discontinued: 05:30 Data 12/17/24 05:30 12/17/24 05:30 A&P Assessment and plan (1) Status post left knee replacement: Reviewed vitals, CBC, BMP, discussed with her decrease in hemoglobin, need for follow-up with primary provider for reassessment. She reports otherwise has been doing well, ambulating. Using incentive spirometer. Has worked with physical therapy. She is started on Eliquis. Continues with postoperative care, pending PT assessment. Tentative discharge plans are for return home. Pain currently under control. Oxycodone as needed for moderate pain, IV Dilaudid as needed for severe breakthrough. Incentive spirometer. Reassess blood counts reassess anemia. Monitor for risk of bleeding with initiation of Eliquis. Plan SHASTA: Continue nightly CPAP. She brought her machine. Smoking: Continue to encourage cessation. Will prescribe her nicotine patch. HTN: Monitor blood pressures. PDMP PDMP Reviewed: Not Reviewed Attestations 2 Medical Necessity Statement*: Continues with postoperative care after left TKA, likely returning home today. Diagnoses Status post left knee replacement Z96.652
[2024-12-17] MEDS: ceFAZolin 2,000 MG in sodium chloride 0.9% (plus) 50 ML 100 MG IV (08:41)
[2024-12-17] MEDS: chlorhexidine gluconate 0.12% Btl 473 mL 30 ML MUCOUS MEM (08:41)
[2024-12-17] MEDS: mupirocin oint 22 gm 1 APPLIC NASAL (08:41)
[2024-12-17] MEDS: iron polysaccharide complex 150 mg Capsule PO (08:43)
[2024-12-17] MEDS: calcium carb-vit d 600mg/400unit 1 Tablet 1 EACH PO (08:43)
[2024-12-17] MEDS: nicotine 14 mg Patch 1 PATCH TRANSDERMA (08:43)
[2024-12-17] MEDS: apixaban 5 mg Tablet 2.5 MG PO (08:43)
[2024-12-17] MEDS: multivitamin therapeutic Tablet 1 TAB PO (08:43)
[2024-12-17] MEDS: docusate sodium 100 mg Capsule PO (08:43)
[2024-12-17] MEDS: HYDROmorphone 0.5 MG/0.5 ML INJ IVP (10:34)
[2024-12-17 10:40] VITALS: BP 154/78; PULSE 55; TEMP 36.7
[2024-12-17 13:00] VITALS: BP 131/74; PULSE 62; O2SAT 99
--- NOTE | 2024-12-17 13:01 | PM.DCS ---
Discharge Providers Date of Admission: 12/16/24 09:24 Date of Discharge: December 17, 2024 Attending Provider at Admission: Yogi Boo DO Attending Provider at Discharge: Yogi Boo DO Consults: Hospitalist?Dr. Lees Primary Care Provider: HI Romero Diagnoses at Discharge Discharge Diagnosis (1) Status post left knee replacement: Status: Acute Reason for Visit Reason for Visit: M17.12 Brief History: Status post left total knee arthroplasty?Hector robotic assisted Hospital Course Hospital Course Patient presented to the preoperative holding area with plan for left total knee arthroplasty after patient has been worked up in the outpatient setting for failed conservative treatment of left knee degenerative joint disease. Once cleared by anesthesia for surgery patient subsequently was taken back to the operative suite underwent anesthesia per anesthesia department and then subsequently underwent a [left] total knee arthroplasty. Procedure was performed without any complications patient was taken to PACU in stable condition patient recovered well in PACU and then was admitted to the floor postoperatively internal medicine was consulted and on board for medical management and assistance with care. Patient received appropriate PT/OT, postoperative antibiotics, postoperative TXA, pain control, postoperative DVT prophylaxis. Elevation and ice. Patient encouraged for knee range of motion allowed weightbearing as tolerated to the operative lower extremity. Dressing was changed as needed, labs were monitored daily. Patient recovered well postoperatively and worked well and progressed well with therapy. It was determined on postoperative day [ 1] the patient was stable for discharge from an orthopedic standpoint and medicine. Patient was comfortable with discharge and plan was discharged home. Patient received appropriate discharge instructions as well as pain medication and DVT prophylaxis postoperatively. Given appropriate instructions for dressing management. Patient will follow-up with Dr. Boo/orthopedics in the office in 2 weeks. All questions answered. Understand if there is any issues questions or concerns and contact the office. Physical Exam Narrative: Left knee examination: Dressing on in place, clean dry and intact. No evidence of saturation. Patient has normal postoperative swelling and tenderness to palpation to the knee. Compartments are soft compressible,'s calf soft and nontender. Sensations intact to light touch distally. Distal pulses are palpable. Patient is able to wiggle toes as well as plantarflex and dorsiflex ankle. Urinary Catheter Management: Bañuelos: Cath Placed During This Visit: yes, but has since been removed by the nurse Reason for Continuing Indwelling Catheter: Perioperative Use in Selected Surgeries Urinary Catheter Date of Insertion: 12/16/24 Urinary Catheter Time of Insertion: 07:22 Date Urinary Catheter Removed: 12/17/24 Time Urinary Catheter Discontinued: 05:30 Discharge Data Studies Completed and Pending Completed Studies During Hospitalization Category Date Time Status XR knee LT 1-2V 36991 Routine Exams 12/16/24 09:25 Completed Pending at discharge Category Date Time Status Basic Metabolic Panel AM LABS Lab 12/18/24 04:00 Ordered Basic Metabolic Panel AM LABS Lab 12/19/24 04:00 Ordered Complete Blood Count w/Auto AM LABS Lab 12/18/24 04:00 Ordered Complete Blood Count w/Auto AM LABS Lab 12/19/24 04:00 Ordered Radiology Impressions Knee X-Ray 12/16/24 09:25 IMPRESSION: Postoperative changes from total knee arthroplasty without evidence of acute osseous abnormality. Laboratory Results WBC 8.94 10^3/uL (3.29-11.43) 12/17/24 05:30 RBC 3.71 10^6/uL (3.85-5.65) L 12/17/24 05:30 Hgb 12.30 g/dL (11.27-16.99) 12/17/24 05:30 Hct 36.0 % (36-47) 12/17/24 05:30 MCV 97.0 fl (85-98) 12/17/24 05:30 MCH 33.2 pg (27-33) H 12/17/24 05:30 MCHC 34.2 g/dL (30-55) 12/17/24 05:30 RDW 13.3 % (12.1-15.1) 12/17/24 05:30 Plt Count 216 10^3/cmm (157-399) 12/17/24 05:30 MPV 9.8 fL (7.4-10.4) 12/17/24 05:30 Neut % (Auto) 69.4 % 12/17/24 05:30 Lymph % (Auto) 22.1 % 12/17/24 05:30 [place]acier % (Auto) 7.3 % 12/17/24 05:30 Eos % (Auto) 0.8 % 12/17/24 05:30 Baso % (Auto) 0.2 % 12/17/24 05:30 Neut # (Auto) 6.20 10^3/uL (1.8-7.7) 12/17/24 05:30 Lymph # (Auto) 2.0 10^3/uL (0.8-4.8) 12/17/24 05:30 [place]ier # (Auto) 0.7 10^3/uL (0.2-0.9) 12/17/24 05:30 Eos # (Auto) 0.1 10^3/uL (0.0-0.8) 12/17/24 05:30 Baso # (Auto) 0.0 10^3/uL (0.0-0.1) 12/17/24 05:30 Nucleated RBC % (auto) 0 % 12/17/24 05:30 Nucleated RBCs # 0.0 /100WBC 12/17/24 05:30 Sodium 134 mmol/L (136-145) L 12/17/24 05:30 Potassium 4.0 mmol/L (3.5-5.1) 12/17/24 05:30 Chloride 101 mmol/L (98-107) 12/17/24 05:30 Carbon Dioxide 23 mmol/L (22-29) 12/17/24 05:30 Anion Gap 14.0 (5-19) 12/17/24 05:30 BUN 11 mg/dL (8-23) 12/17/24 05:30 Creatinine 0.8 mg/dL (0.5-0.9) 12/17/24 05:30 GFR Calculation Not Reportable 12/17/24 05:30 Glucose 91 mg/dL (65-115) 12/17/24 05:30 Calculated Osmolality 277 mOsm/kg (285-295) L 12/17/24 05:30 Calcium 9.3 mg/dL (8.5-10.5) 12/17/24 05:30 Blood Type A Positive 12/16/24 06:25 Rho(D) Type Rh positive 12/16/24 06:25 Antibody Screen Negative 12/16/24 06:25 Vitals Last Vital Signs Temp 97.5 F L 12/17/24 05:00 Pulse 57 L 12/17/24 05:00 Resp 16 12/17/24 05:00 BP 127/81 12/17/24 05:00 Pulse Ox 98 12/17/24 05:00 O2 Del Method Room Air 12/17/24 05:00 O2 Flow Rate 2 12/16/24 09:58 Discharge Plan Discharge Patient Disposition: Home Condition: Stable Prescriptions: New Eliquis 2.5 mg tablet 2.5 mg PO BID 14 Days Qty: 28 0RF nicotine 14 mg/24 hr Patch 24 Hour 1 patch transdermal DAILY Qty: 90 1RF oxycodone 5 mg tablet 5 mg PO Q6H PRN (Reason: pain postop) 7 Days Qty: 28 0RF Continued (DME) Auto-titrating CPAP 6-14cm See Rx Instructions .Route .MEDSUPPLY Qty: 1 0RF Rx Instructions: As directed acetaminophen [Arthritis Pain Relief (acetam)] 650 mg tablet extended release 650 mg PO Q12H PRN (Reason: Pain) potassium gluconate 600 mg (99 mg) tablet 600 mg PO DAILY chlorthalidone 25 mg tablet 25 mg PO DAILY Qty: 90 3RF multivitamin [Daily Multi-Vitamin] Tablet 1 tab PO DAILY cholecalciferol (vitamin D3) 50 mcg (2,000 unit) capsule 50 mcg PO DAILY Qty: 90 4RF meloxicam 15 mg tablet 15 mg PO DAILY Rx Instructions: TAKE ONE TABLET BY MOUTH DAILY Discharge Orders: Discharge Order (Routine); Ordered 12/17/24 Ordered By: Steve Lees Referrals: Penelope Beckwith FNP [Primary Care Provider, [facility]] - 4-7 days Discharge Diet: Regular Discharge Activity: Limit activity as instructed Patient Instructions: Acute Wound Care (DC), Post Anesthesia Care Activity Restrictions/Additional Instructions: Orthopedic discharge instructions Yvonne Dressing--Keep dressing on and dry. After 3 days you can remove some of the dressing and shower. disconnect battery pack when showering. Yvonne dressing will stay on until follow up appt in 2 weeks. The battery pack for the dressing will at 5-7 days. Battery pack can be removed and discarded once batteries . Okay to take a shower but would recommend wrapping and Saran wrap prior to to keep dressing from getting wet. Patient may weight-bear as tolerate to the operative extremity Utilize walker as needed Encourage knee range of motion Ice and elevate as needed for pain and swelling Take pain medication as prescribed Take antinausea medication as needed Pain medication can cause constipation. take [id number] stool softeners and or MiraLAX. Take prescribed Eliquis twice daily for the next 14 days for blood clot prevention May supplement for pain with Tylenol zois-eyi-ohpurko as needed(1000 mg every 8 hours-do not exceed more than 3000mg in 24-hour period) No baths or soaks Follow-up in the orthopedic office in 2 weeks Contact the office for any questions or concerns Follow-up with your primary provider in 4 to 7 days for reassessment. Please have your primary provider repeat blood counts to reassess for any anemia. Continue your efforts to stop smoking, working with your primary provider for assistance. Seek medical attention in case of any worsening or new concerning symptoms. Discharge Attestations Time Spent in Discharge Care*: less than 30 min Quality Metrics Clinical Quality Measures [ No reported AMI, CVA or VTE this stay] Coding Level of Care Code Acute Code for Chg Fwd Diagnoses Status post left knee replacement Z96.652 Time Spent (min) 20
[2024-12-17 13:40] VITALS: BP 131/74; PULSE 62; TEMP 36.7; O2SAT 99
== END 2024-12-17 13:40 | disposition home or self-care (01) ==
LOC: OBGYN 09:25
PROVIDERS: Physician Assistant; Admitting Provider Student in an Organized Health Care Education/Training Program; PCP Nurse Practitioner Family; Visit Provider Student in an Organized Health Care Education/Training Program
PROC: 8E0Y0CZ Robotic Assisted Procedure of Lower Extremity, Open Approach (ICD-10-PCS; CPT 27447; principal; 2024-12-16 07:00)
DX: M17.12 Unilateral primary osteoarthritis, left knee (principal); I10 Essential (primary) hypertension; G47.33 Obstructive sleep apnea (adult) (pediatric); F17.210 Nicotine dependence, cigarettes, uncomplicated
CPT/HCPCS: 27447; 20985; 36415; 51702; 73560; 80048; 85025; 86850; 86900; 96374; 96376; 97110; 97116; 97161; 97165; A4216; C1713; C1776; G0378; J0131; J0171; J0690; J1100; J1171; J1885; J2250; J2371; J2704; J2795; J3370; J7030; J9999; L8699

== ENCOUNTER 2024-12-19 05:00 | Outpatient (RCR) | payer MEDICARE, SELFPAY | END 2025-01-18 23:59 | disposition home or self-care (01) | LOC: APT 05:00 | PROVIDERS: Visit Provider Physician Assistant | DX: Z47.1 Aftercare following joint replacement surgery (principal); Z96.652 Presence of left artificial knee joint | CPT/HCPCS: 97110; 97162 ==

== ENCOUNTER → 2024-12-31 09:17 | Outpatient (BNVA) | payer MEDICARE, SELFPAY | PROVIDERS: PCP Nurse Practitioner Family; Visit Provider Physician Assistant | DX: Z96.652 Presence of left artificial knee joint (principal) | CPT/HCPCS: 73560; 73565; 99024 ==

== ENCOUNTER 2025-01-19 05:00 | Outpatient (RCR) | payer MEDICARE, SELFPAY | END 2025-02-17 23:59 | disposition home or self-care (01) | LOC: APT 05:00 | PROVIDERS: Visit Provider Physician Assistant | DX: Z47.1 Aftercare following joint replacement surgery (principal); Z96.652 Presence of left artificial knee joint | CPT/HCPCS: 97110 ==

== ENCOUNTER → 2025-01-27 09:53 | Outpatient (BNVA) | payer MEDICARE, SELFPAY | PROVIDERS: PCP Nurse Practitioner Family; Visit Provider Nurse Practitioner Family | DX: I10 Essential (primary) hypertension (principal); E55.9 Vitamin D deficiency, unspecified; G47.00 Insomnia, unspecified | CPT/HCPCS: 80053; 80061; 82306; 82607; 84443; 85025 ==

== ENCOUNTER 2025-01-31 14:38 | Outpatient (CLI) | payer MEDICARE, SELFPAY ==
--- NOTE | 2025-01-31 15:00 | XR_ITS ---
WS: [id number] SCREENING DEXA SCAN [facility], [place] CLINICAL INFORMATION: Z78.0 - Asymptomatic menopausal state COMPARISON: 2020 FINDINGS: The L1-L4 bone mineral density measures 0.986 g/cm2. This corresponds to a T score score of -1.6 and Z score of -0.4. Left femoral neck bone mineral density measures 0.937 g/cm2. This corresponds to a T score of -0.6 and Z score of 0.7. Right femoral neck bone mineral density measures 0.942 g/cm2. This corresponds to a T score -0.5of and Z score of 0.7. Mean femoral neck bone mineral density measures 0.939 g/cm2. This corresponds to a T score of -0.5 and Z score of 0.7. XR/XR DEXA axial skeleton* 79963 IMPRESSION: Osteopenia lumbar spine. Normal bone mineralization of femoral necks. Patient's FRAX calculated 10 year probability for major osteoporotic fracture i s 9.8% and osteoporotic hip fracture is 2.2%. Bone density lumbar spine increased 7.1% Bone density femoral necks decreased -8.7%
== END 2025-01-31 14:39 | disposition home or self-care (01) ==
PROVIDERS: PCP Nurse Practitioner Family; Visit Provider Nurse Practitioner Family
DX: Z78.0 Asymptomatic menopausal state (principal); M85.88 Other specified disorders of bone density and structure, other site
CPT/HCPCS: 77080

== ENCOUNTER → 2025-02-06 09:31 | Outpatient (BNVA) | payer MEDICARE, SELFPAY | PROVIDERS: PCP Nurse Practitioner Family; Visit Provider Student in an Organized Health Care Education/Training Program | DX: Z12.11 Encounter for screening for malignant neoplasm of colon (principal) | CPT/HCPCS: 99024; 99204 ==

== ENCOUNTER 2025-02-10 08:34 | Outpatient (CLI) | payer MEDICARE, SELFPAY ==
--- NOTE | 2025-02-10 09:00 | CT_ITS ---
WS: [id number] LDCT LUNG CANCER SCREENING HISTORY: F17.210 - Nicotine dependence, cigarettes, uncomplicated TECHNIQUE: Axial imaging performed from the apices to 1 cm below the costophrenic angles. Coronal and sagittal reformats are submitted with axial MIP series. All CT scans at [facility] use at least one of these dose optimization techniques: automated exposure control; mA and/or kV adjustment per patient size (includes targeted exams where dose is matched to clinical indication); or iterative reconstruction. DLP: 74.41 mGy.cm DIvol: Mean CTDIvol: 1.40 (mGy) COMPARISON: 03/09/2023 Diagnostic quality: Satisfactory Lungs: No suspicious masses or nodules. No endobronchial lesions. Heart: Normal size heart with no pericardial effusion.. Increased pericardial fat with mild pericardial thickening. Other findings: Moderate atherosclerosis aorta. Ascending aorta is dilated measuring 4.5 cm. Mild pulmonary hypertension. Mild substernal thyromegaly. Increase in thoracic kyphosis. CT/CT lung screening [id number] IMPRESSION: LUNG-RADS: 1S-Negative with Significant Findings FOLLOW UP: 12 Month: Continue annual screening with LDCT OTHER FINDINGS (S MODIFIER): Ectatic thoracic aorta with mild aneurysmal dilata tion of the ascending aorta and mild pulmonary hypertension. Aortic can be furt her evaluated by CT angiogram.
== END 2025-02-10 08:35 | disposition home or self-care (01) ==
PROVIDERS: PCP Nurse Practitioner Family; Visit Provider Nurse Practitioner Family
DX: Z12.2 Encounter for screening for malignant neoplasm of respiratory organs (principal); I71.21 Aneurysm of the ascending aorta, without rupture; I27.20 Pulmonary hypertension, unspecified; F17.210 Nicotine dependence, cigarettes, uncomplicated
CPT/HCPCS: 71271

== ENCOUNTER → 2025-02-11 08:59 | Outpatient (BNVA) | payer MEDICARE, SELFPAY | PROVIDERS: PCP Nurse Practitioner Family; Visit Provider Physician Assistant | DX: Z96.652 Presence of left artificial knee joint (principal) | CPT/HCPCS: 73560; 73565; 99024 ==

== ENCOUNTER 2025-02-18 05:00 | Outpatient (RCR) | payer MEDICARE, SELFPAY | END 2025-03-20 23:59 | disposition home or self-care (01) | LOC: APT 05:00 | PROVIDERS: PCP Nurse Practitioner Family; Visit Provider Physician Assistant | DX: Z47.1 Aftercare following joint replacement surgery (principal); Z96.652 Presence of left artificial knee joint | CPT/HCPCS: 97110; 97112; 97530 ==

== ENCOUNTER 2025-03-11 06:53 | Day surgery (SDC) | payer MEDICARE, SELFPAY ==
[2025-03-11 07:16] VITALS: BP 120/79; PULSE 78; RESP 18; TEMP 36.3; O2SAT 98
--- NOTE | 2025-03-11 08:02 | ANES.PREANE2 ---
Pre-Anesthetic Assessment Height/Weight: Height 1.63 m Weight 79.379 kg Temp Pulse Resp BP Pulse Ox O2 Del Method 97.4 F L 78 18 120/79 98 Room Air 03/11/25 07:16 03/11/25 07:16 03/11/25 07:16 03/11/25 07:16 03/11/25 07:16 03/11/25 07:16 Preop Diagnosis: screen Operation Date: 03/11/25 08:15 Proposed Procedures p Colonoscopy 38393 G0121, Z12.11(Not Applicable) - Juan Peterson MD Familial anesthetic complications: none Was Beta Reagan taken within 24 hours: N/A Was Clonidine taken within 24 hours: N/A Last intake: Intake Last Liquid Date 03/10/25 Last Liquid Time 21:00 Last Solid Date 03/09/25 Last Solid Time 17:00 Social Tobacco 1 PPD pack(s) per day Exam alert, oriented x 3, clear to auscultation bilaterally and regular rate & rhythm Airway Submandibular: within normal limits Cervical ROM: within normal limits Mallampati: Class I Dentition: false (upper/lower) History/ROS No significant history except as noted Pulmonary Chronic Obstructive Pulmonary Disease CV/HEM Hypertension (denies cp. exercise limited) None reported Hepatic None reported Metabolic Morbid Obesity Neuropsych Neuropathy (hands and feet - neuropathy and weakness) Anesthetic Plan ASA status: 3 Anesthesia: MAC Risk of > 500 ml blood loss (7ml/kg in children): No Medications/Allergies Home Medications ?Medication ?Instructions ?Recorded ?Confirmed ?Last Taken ?Type cholecalciferol (vitamin D3) 50 50 mcg PO DAILY #90 caps 06/22/21 03/05/25 03/10/25 Rx mcg (2,000 unit) capsule Auto-titrating CPAP 6-14cm #1 ea 12/06/21 03/05/25 03/05/25 Rx acetaminophen 650 mg 650 mg PO Q12H PRN Pain 03/27/23 03/11/25 1 Month Ago History tablet,extended release (Arthritis ~02/09/25 Pain Relief (acetaminophen) ER) chlorthalidone 25 mg tablet 25 mg PO DAILY #90 tabs 04/08/24 03/05/25 03/10/25 Rx multivitamin (Daily Multi-Vitamin 1 tab PO DAILY 12/10/24 03/05/25 03/10/25 History tablet) meloxicam 15 mg tablet 15 mg PO DAILY 12/13/24 03/05/25 03/10/25 History citalopram 20 mg tablet 20 mg PO DAILY #90 tabs 03/03/25 03/05/25 03/10/25 Rx Allergies Allergy/AdvReac Type Severity Reaction Status Date / Time No Known Allergies Allergy Verified 03/03/25 08:54 Current Medications Generic Name Dose Route Start Last Admin Trade Name Freq PRN Reason Stop Dose Admin Sodium Chloride 1,000 mls @ 15 mls/hr 03/11/25 07:11 03/11/25 07:23 Sodium Chloride 0.9% IV 03/12/25 07:10 15 mls/hr .Q24H PRN Administration COLONOSCOPY FLUIDS PFSH Anesthesia Medical History HTN (hypertension) Obstructive sleep apnea No pertinent past medical history Surgical History History of tubal ligation History of cholecystectomy Family History Father Cancer Sister Diabetes Hypertension Brother Hypertension Social History Smoking and tobacco/nicotine status: current every day tobacco/nicotine user cigarettes Packs smoked per day: 1 Years cigarettes smoked: 20 [ Other cigarette details: Quit for approx 15 years & restarted after husabdn and father ] Second hand smoke exposure: No Alcohol intake: never Substance/Drug Use: unknown Adopted: No Caregiver/support person: No Lives independently: Yes Household members: spouse Housing: House Marital status: Number of children: 3 Highest education level completed: High School Graduate service: No Current occupational status: retired Do you think of yourself as: Straight/Heterosexual Current gender identity: Female Data Anesthesia Cardiac Studies: Sestamibi Stress Test (Cardiology) 03/31/23 Cardiac Event Monitor 05/14/24
--- NOTE | 2025-03-11 08:19 | W.PM.OPSFHP ---
Same Day Surgery H&P Indication for Procedure/HPI DATE OF PROCEDURE: March 11, 2025 CHIEF COMPLAINT/INDICATIONFOR SURGICAL PROCEDURE: screening colonoscopy PREOP DIAGNOSIS: screening colonoscopy PLANNED PROCEDURE: Operation Date: 03/11/25 08:15 Proposed Procedures p Colonoscopy 39621 G0121, Z12.11(Not Applicable) - Juan Peterson MD Medications/Allergies* Home Medications ?Medication ?Instructions ?Recorded ?Confirmed ?Type acetaminophen 650 mg 650 mg PO Q12H PRN Pain 03/27/23 03/11/25 History tablet,extended release (Arthritis Pain Relief (acetaminophen) ER) multivitamin (Daily Multi-Vitamin 1 tab PO DAILY 12/10/24 03/05/25 History tablet) meloxicam 15 mg tablet 15 mg PO DAILY 12/13/24 03/05/25 History Allergies/Adverse Reactions Allergy/AdvReac Type Severity Reaction Status Date / Time No Known Allergies Allergy Verified 03/03/25 08:54 Current Medications: Generic Name Dose Route Start Last Admin Trade Name Freq PRN Reason Stop Dose Admin Sodium Chloride 1,000 mls @ 15 mls/hr 03/11/25 07:11 03/11/25 07:23 Sodium Chloride 0.9% IV 03/12/25 07:10 15 mls/hr .Q24H PRN Administration COLONOSCOPY FLUIDS Pertinent History/Comorbid Conditions* Medical History (Updated 02/13/25 @ 13:48 by HI Romero) HTN (hypertension) Obstructive sleep apnea No pertinent past medical history Surgical History (Updated 01/28/25 @ 00:01 by ALEX Dos Santos) History of tubal ligation History of cholecystectomy Family History (Updated 06/15/21 @ 09:57 by Patrizia Eugene LPN, RT) Diabetes Sister Cancer Father Hypertension Sister Brother Social History Smoking and tobacco/nicotine status: current every day tobacco/nicotine user cigarettes Packs smoked per day: 1 Years cigarettes smoked: 20 [ Other cigarette details: Quit for approx 15 years & restarted after husabdn and father ] Second hand smoke exposure: No Alcohol intake: never Substance/Drug Use: unknown Adopted: No Caregiver/support person: No Lives independently: Yes Household members: spouse Housing: House Marital status: Number of children: 3 Highest education level completed: High School Graduate service: No Current occupational status: retired Do you think of yourself as: Straight/Heterosexual Current gender identity: Female Pertinent Exam Findings alert, oriented x 3, clear to auscultation bilaterally, regular rate & rhythm and procedure specific exam findings abdomen soft, nt, nd Recommendations Risks and benefits of procedure reviewed and Patient/family agree to proceed Surgery/Procedure today Coding Level of Care Code Acute Code for Chg Fwd
--- NOTE | 2025-03-11 08:38 | PC.NURSE ---
CECUM TIME 0838
[2025-03-11 08:55] VITALS: BP 122/88; PULSE 64; RESP 16; TEMP 36.2; O2SAT 99
[2025-03-11 09:06] VITALS: BP 118/82; PULSE 65; RESP 16; O2SAT 100
--- NOTE | 2025-03-11 16:02 | ANE.PACU2 ---
Inpatient post-anesthesia follow up: Airway intact: Yes Vital signs: Temperature 97.1 F Pulse Rate 65 Respiratory Rate 16 Blood Pressure 118/82 Pulse Oximetry 100 Oxygen Delivery Me thod Room Air Oxygen Flow Rate Fraction of Inspir ed Oxygen Hydration adequate: Yes Nausea and vomiting: No Pain level: 1 Mental status: Baseline
== END 2025-03-11 09:26 | disposition home or self-care (01) ==
PROVIDERS: PCP Nurse Practitioner Family; Visit Provider Student in an Organized Health Care Education/Training Program
PROC: 0DJD8ZZ Inspection of Lower Intestinal Tract, Via Natural or Artificial Opening Endoscopic (ICD-10-PCS; CPT 45378; principal; 2025-03-11 08:15)
DX: Z12.11 Encounter for screening for malignant neoplasm of colon (principal); K52.9 Noninfective gastroenteritis and colitis, unspecified; K57.30 Diverticulosis of large intestine without perforation or abscess without bleeding; F17.210 Nicotine dependence, cigarettes, uncomplicated; J44.9 Chronic obstructive pulmonary disease, unspecified; I10 Essential (primary) hypertension; Z79.899 Other long term (current) drug therapy; G47.33 Obstructive sleep apnea (adult) (pediatric)
CPT/HCPCS: 45380; 88305; G0121; J2704; J7030

== ENCOUNTER → 2025-03-24 10:38 | Outpatient (BNVA) | payer MEDICARE, SELFPAY | PROVIDERS: PCP Nurse Practitioner Family; Visit Provider Student in an Organized Health Care Education/Training Program | DX: Z09 Encounter for follow-up examination after completed treatment for conditions other than malignant neoplasm (principal) | CPT/HCPCS: 99213 ==

== ENCOUNTER → 2025-06-11 11:28 | Outpatient (BNVA) | payer MEDICARE, SELFPAY | PROVIDERS: PCP Nurse Practitioner Family; Visit Provider Physician Assistant | DX: Z98.890 Other specified postprocedural states (principal); Z96.652 Presence of left artificial knee joint | CPT/HCPCS: 73560; 73565; 99213 ==

== ENCOUNTER 2025-06-21 11:45 | Emergency (ER) | payer MEDICARE, SELFPAY ==
[2025-06-21 11:50] VITALS: BP 138/85; PULSE 69; RESP 16; TEMP 36.4; O2SAT 98
--- OUTSIDE RECORDS SUMMARY | 2025-06-21 11:52 | XMS_ITS | Clinical Summary ---
Author Organization [facility] Address [address] [place] [address] Care Team Providers Care Relay Shop Supervisor Name Role Phone Penelope Beckwith APRN Primary Care Provider [phone] Allergies No known active allergies Medications meloxicam (MOBIC) 15 mg tablet Take 15 mg by mouth daily. Active cholecalciferol, vitamin D3, (VITAMIN D3 ORAL) Take 500 mg by mouth. Active POTASSIUM-99 ORAL Take by mouth. Activ e calcium carb-mag ox-zinc gluc 333-133-5 mg Tablet Take by mouth. Calcium 333mg/Magnesium [id number]/ Zinc cmdsskr8re Active OTHER Started omni gtts 10/07 Active prednisoLONE acetate (Pred Forte) 1 % suspension 1 Drop by See Admin Instructions route 3 times daily. In operative eye. Begin 3 days prior to surgery. 5 mL 1 4 Active ofloxacin (OCUFLOX) 0.3 % solution 1 Drop by See Admin Instructions route 3 times daily. In operative eye. Begin 3 days prior to surgery. 5 mL 1 4 Active ketorolac tromethamine (ACULAR) 0.4 % solution 1 Drop by See Admin Instructions route 3 times daily. In operative eye. Begin 3 days prior to surgery. 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 Encounters Date Type Department Care Team Description 06/11/2025 External Device Data [facility] ABSTRACTION Provider, Abstract 06/10/2025 External Device Data [facility] ABSTRACTION Provider, Abstract 05/13/2025 External Device Data [facility] ABSTRACTION Provider, Abstract 05/06/2025 External Device Data [facility] ABSTRACTION Provider, Abstract from Last 3 Months Immunizations Immunization Administration Dates Next Due Influenza Seasonal Unspecified Formulation IM ,06/10/2002 Family History Medical History Relation Name Comments Cancer Father Hypertension Father Diabetes Mother Hypertension Mother Hypertension Sister Amblyopia Neg Hx Blindness Neg Hx Cataract Neg Hx Corneal Dystrophies Neg Hx Detachment/Tears Neg Hx Fuchs' dystrophy Neg Hx Glaucoma Neg Hx Kerat[place]us Neg Hx Macular Degen Neg Hx Strabismus Neg Hx Stroke Neg Hx Thyroid Disease Neg Hx Relation Name Status Comments Father Mother Sister Social History Tobacco Use Types Packs/Day Years Used Date Smoking Tobacco: Every Day Cigarettes Smokeless Tobacco: Never Tobacco Cessation:Ready to Q uit: Not Asked; Counseling Given: Not Answered Alcohol Use Standard Drinks/Week Comments Never 0 (1 standard drink = 0.6 oz pur e alcohol) Feeling Safe Answer Date Recorded Are you in a relationship wi th someone who hurts you emotionally and/or physically? No 10/11/2023 Comments No Sex and Gender Information Value Date Recorded Sex Assigned at Not on file Legal Sex Female 2:49 AM FLOWER CHENILLER Gender Identity Not on file Sexual Orientation Not on file Last Filed Vital Signs Vital Sign Reading Time Taken Comments Blood Pressure 145/85 10/11/2023 10:39 AM FLOWER CHENILLER Pulse 67 10/11/2023 10:39 AM FLOWER CHENILLER Temperature 37.1 C (98.8 F) 10/11/2023 10:39 AM FLOWER CHENILLER Respiratory Rate 16 10/11/2023 9:21 AM FLOWER CHENILLER Oxygen Saturation 99% 10/11/2023 10:39 AM FLOWER CHENILLER Inhaled Oxygen Concentration - - Weight 87.5 kg (193 lb) 10/11/2023 9:21 AM FLOWER CHENILLER Height 162.6 cm (5' 4 ) 10/11/2023 9:21 AM FLOWER CHENILLER Body Mass Index 33.13 10/11/2023 9:21 AM FLOWER CHENILLER Plan of Treatment Upcoming Encounters Date Type Department Care Team (Late st Contact Info) Description 08/01/2025 10:00 AM FLOWER CHENILLER Office Visit [facility] [place] [address] [place] [phone] Chester Nunez MD [address] [place] [address] Health Maintenance Due Date Last Done Comments DTAP/TDAP/TD VACCINES (1 - Tdap) 01/04/1972 PNEUMOCOCCAL VACCINE 50+ YEA RS (1 of 2 - PCV) 01/04/1972 BREAST CANCER SCREENING 1993 COLORECTAL SCREENING 1998 Colorectal Cancer Screening 1998 FIT-DNA Q 3 years 1998 FIT/FOBT Q 1 year 1998 Flex Sig/CT Colonography Q 5 years 1998 ZOSTER VACCINE (1 of 2) 2003 OSTEOPOROSIS SCREENING 2018 INFLUENZA VACCINE (#1) 2025 06/09/2020, 2001 RSV VACCINE (60+ or ) (1 - 1-dose 75+ series) 01/04/2028 Medical Devices Implanted Type Area Channel Worker Device Identifier Shelf Expiration Date Model / Serial / Lot Lens Io [id number] 30.0 - [id number] Implanted:Qty: 1 on 01/27/2021 by Joseline Marvin MD Eye Left: Eye [employer] 01/20/2025 [id number] / [id number] / Ring Tension Capsular Valle Mr-10c - [id number] Implanted:Qty: 1 on 10/11/2023 by Joseline Marvin MD at [facility] Eye Right: Eye [employer] 03/20/2027 MR-10C / [id number] / CCHCGD Lens Iol Tecnis Eyhance 30.0 [id number] - [id number] Implanted:Qty: 1 on 10/11/2023 by Joseline Marvin MD at [facility] Lens Right: Eye [employer] 03/18/2024 [id number] / [id number] / N/A Explanted Type Area Channel Worker Device Identifier Shelf Expiration Date Model / Serial / Lot Oil Slc 8.5ml [id number] - [id number] Implanted:Qty: 1 on 09/23/2020 by Chester Nunez MD Explanted:Qty: 1 on 01/27/2021 by Chester Nunez MD Eye Left: Eye [employer] 06/20/2022 [id number] / / [id number] Insurance [facility] Advance Directives For more information, please contact: [phone] * Full Code (Latest Code Status on File) Date Activated Date Inactivated Comments 10/11/2023 9:13 AM 10/11/2023 1:09 PM Care Teams Relay Shop Supervisor Relationship Specialty Start Date End Date Penelope Beckwith APRN PCP - General 01/19/21
--- OUTSIDE RECORDS SUMMARY | 2025-06-21 11:52 | XMS_ITS | Encounter Summary ---
[facility] Organization [facility] Address [address] [place] [address] Care Team Providers Care Chronograph Operator Name Role Phone Penelope Beckwith APRN Primary Care Provider +1- [phone] Encounter Details Date Type Department Care Team (Latest Contact Info) Description 01/07/2002 Outpatient Historical [facility] Abhijeet Pritchett MD [address] [place] [id number] FX METATARSAL-CLOSED (Primary Dx); JOINT PAIN-ANKLE Social History Tobacco Use Types Packs/Day Years Used Date Smoking Tobacco: Never Assessed Comments Unknown Sex and Gender Information Value Date Recorded Sex Assigned at Not on file Legal Sex Female 4:55 AM ADJUNCT NURSING FACULTY Gender Identity Not on file Sexual Orientation Not on file documented as of this encounter Plan of Treatment Not on file documented as of this encounter Visit Diagnoses Diagnosis Closed fracture of metatarsal bone(s)- Primary Pain in joint, ankle and foot documented in this encounter Care Teams Chronograph Operator Relationship Specialty Start Date End Date Penelope Beckwith APRN PCP - General Nurse Practitioner Family 01/19/21 documented as of this encounter
--- OUTSIDE RECORDS SUMMARY | 2025-06-21 11:52 | XMS_ITS | Encounter Summary ---
Author Organization [facility] Address [address] [place] [address] Care Team Providers Care Log Peeler Name Role Phone Penelope Beckwith APRN Primary Care Provider +1- [phone] Encounter Details Date Type Department Care Team (Latest Contact Info) Description 09/10/1999 Outpatient Historical [facility] [address] [phone] Dmitry Dang, NO ADDRESS ON FILE Influenza with other respiratory manifestations (Primary Dx) Social History Tobacco Use Types Packs/Day Years Used Date Smoking Tobacco: Never Assessed Comments Unknown Sex and Gender Information Value Date Recorded Sex Assigned at Not on file 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
--- OUTSIDE RECORDS SUMMARY | 2025-06-21 11:52 | XMS_ITS | Clinical Summary ---
Author Organization [facility] Address [address] [place] [address] Care Team Providers Care Driver Sales Name Role Phone Penelope Beckwith Beatriz KUMAR Primary Care Provider +1- [phone] Allergies No known active allergies Medications multivitamin (DAILY-ROSALIO) tablet Take 1 Tablet by mouth daily. Active OTHER PREDNISOLONE 1%/ GATIFLOXACIN 0.5%/ BROMFENAC 0.075%. 1 DROP TO OPERATIVE EYE THREE TIMES/DAY START 3 DAYS PRIOR TO SURGERY/ CONTINUE 3 WKS 4 mL 1 1 Active carboxymethylce llulose (REFRESH EYE DROPS) 1 % solution 2 Drops 2 times daily as needed for Discomfort. 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 Gender Identity Not on file Sexual Orientation Not on file Last Filed Vital Signs Vital Sign Reading Time Taken Comments Blood Pressure 146/73 01/27/2021 8:58 AM CDT Pulse 65 01/27/2021 8:58 AM CDT Temperature 36.7 C (98 F) 01/27/2021 8:58 AM CDT Respiratory Rate 16 01/27/2021 8:58 AM CDT Oxygen Saturation 100% 01/27/2021 8:58 AM CDT Inhaled Oxygen Concentration - - Weight 89.7 kg (197 lb 12.8 oz) 01/27/2021 6:38 AM CDT Height 162.6 cm (5' 4 ) 01/27/2021 6:38 AM CDT Body Mass Index 33.95 01/27/2021 6:38 AM CDT Plan of Treatment Health Maintenance Due Date Last Done Comments DTAP/TDAP/TD VACCINES (1 - Tdap) 01/04/1972 BREAST CANCER SCREENING 1993 COLORECTAL SCREENING 1998 Colorectal Cancer Screening 1998 FIT-DNA Q 3 years 1998 FIT/FOBT Q 1 year 1998 Flex Sig/CT Colonography Q 5 years 1998 PNEUMOCOCCAL VACCINE 50+ YEA RS (1 of 1 - PCV) 2003 ZOSTER VACCINE (1 of 2) 2003 OSTEOPOROSIS SCREENING 2018 INFLUENZA VACCINE (#1) 2025 06/09/2020, 2001 RSV VACCINE (60+ or ) (1 - 1-dose 75+ series) 01/04/2028 Medical Devices Implanted Type Area Rail Gang Supervisor Device Identifier Shelf Expiration Date Model / Serial / Lot Lens Io [id number] - [id number] Implanted:Qty: 1 on 01/27/2021 by Joseline Marvin MD at [facility] Left: Eye [employer] 01/20/2025 [id number] / [id number] / Explanted Type Area Rail Gang Supervisor Device Identifier Shelf Expiration Date Model / Serial / Lot Oil Slc 8.5ml [id number] - [id number] Implanted:Qty: 1 on 09/23/2020 by Chester Nunez MD at [facility] Explanted:Qty: 1 on 01/27/2021 by Chester Nunez MD at [facility] Eye Left: Eye [employer] 06/20/2022 [id number] / / 105RY Advance Directives For more information, please contact: [phone] * Full Code (Latest Code Status on File) Date Activated Date Inactivated Comments 01/27/2021 6:39 AM 01/27/2021 11:34 AM Care Teams Driver Sales Relationship Specialty Start Date End Date Penelope Beckwith APRN PCP - General Nurse Practitioner Family 01/19/21
--- OUTSIDE RECORDS SUMMARY | 2025-06-21 11:52 | XMS_ITS | Encounter Summary ---
Author Organization [facility] Address [address] [place] [address] Care Team Providers Care Van Cdl Driver Name Role Phone Penelope Beckwith APRN Primary Care Provider +1- [phone] Encounter Details Date Type Department Care Team (Latest Contact Info) Description 11/12/2001 Outpatient Historical [facility] Abhijeet Pritchett MD [address] [place] [phone] FX METATARSAL-CLOSED (Primary Dx) Social History Tobacco Use Types Packs/Day Years Used Date Smoking Tobacco: Never Assessed Comments Unknown Sex and Gender Information Value Date Recorded Sex Assigned at Not on file 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
--- OUTSIDE RECORDS SUMMARY | 2025-06-21 11:52 | XMS_ITS | Encounter Summary ---
Author Organization [facility] Address [address] [place] [address] Care Team Providers Care Salesperson Books Name Role Phone Penelope Beckwith APRN Primary Care Provider +1- [phone] Encounter Details Date Type Department Care Team (Late st Contact Info) Description 06/10/2002 Outpatient Historical [facility] [address] [place] [address] Aaron Bull DO [address] [place] [phone] VACCINE FOR INFLUENZA (Primary Dx) Social History Tobacco Use Types Packs/Day Years Used Date Smoking Tobacco: Never Assessed Comments Unknown Sex and Gender Information Value Date Recorded Sex Assigned at Not on file 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
--- OUTSIDE RECORDS SUMMARY | 2025-06-21 11:52 | XMS_ITS | Encounter Summary ---
Author Organization [facility] Address [address] [place] [address] Care Team Providers Care Regional Marketing Director Name Role Phone Penelope Beckwith APRN Primary Care Provider +1- [phone] Encounter Details Date Type Department Care Team (Latest Contact Info) Description 10/01/2001 Outpatient Historical [facility] Abhijeet Pritchett MD [address] [place] [phone] FX METATARSAL-CLOSED (Primary Dx) Social History Tobacco Use Types Packs/Day Years Used Date Smoking Tobacco: Never Assessed Comments Unknown Sex and Gender Information Value Date Recorded Sex Assigned at Not on file 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
--- NOTE | 2025-06-21 13:09 | W.ED.BACK ---
HPI - Back Pain/Injury General: Chief Complaint: Back Pain/Injury Stated Complaint: low back pain radiating down leg Time Seen by Provider: 06/21/25 13:03 History of Present Illness: Patient is a 70-year-old female with history of HTN, presents to the emergency room with low right back pain, that radiates to her hip, groin, laterally on iliac crest, and down her leg. This started 3 days ago. No injury. No fevers. Patient has had this in the past, however has never had any formal evaluation. Her primary care physician gave her tramadol, and Robaxin. No groin numbness, incontinence, sensory changes. Associated symptoms: Deny abdominal pain, chills, fever(s), nausea or vomiting Related Data Home Medications ?Medication ?Instructions ?Recorded ?Confirmed acetaminophen 650 mg 650 mg PO Q12H PRN Pain 03/27/23 06/11/25 tablet,extended release (Arthritis Pain Relief (acetaminophen) ER) multivitamin (Daily Multi-Vitamin 1 tab PO DAILY 12/10/24 06/11/25 tablet) Previous Rx's ?Medication ?Instructions ?Recorded cholecalciferol (vitamin D3) 50 50 mcg PO DAILY #90 caps 06/22/21 mcg (2,000 unit) capsule Auto-titrating CPAP 6-14cm #1 ea 12/06/21 citalopram 20 mg tablet 20 mg PO DAILY #90 tabs 03/03/25 chlorthalidone 25 mg tablet See Rx Instructions .Route 06/05/25 .COMPLEX #90 tabs meloxicam 15 mg tablet See Rx Instructions .Route 06/06/25 .COMPLEX #90 tabs methocarbamol 500 mg tablet 500 mg PO TID 2 weeks #42 tabs 06/11/25 prednisone 20 mg tablet 20 mg PO DAILY #15 tabs 06/11/25 tramadol 50 mg tablet 50 mg PO Q6H PRN pain 5 days #20 06/20/25 tabs ketorolac 10 mg tablet 10 mg PO Q8H PRN pain 5 days #14 06/21/25 tabs methylprednisolone 4 mg tablets in See Rx Instructions PO .COMPLEX 06/21/25 a dose pack (Medrol (Americo)) #21 ea Allergies Allergy/AdvReac Type Severity Reaction Status Date / Time No Known Allergies Allergy Verified 06/21/25 11:56 Review of Systems General: Reports: 10 or more systems reviewed and unremarkable except in HPI and below Const: Denies: fever(s), chills or body aches Card: Denies: chest pain or dyspnea on exertion Resp: Denies: dyspnea, productive cough or wheezing GI: Denies: abdominal pain, nausea or vomiting : Denies: difficulty voiding Musc: Reports: joint pain, joint swelling and limited range of motion Skin/Breast: Denies: changes in skin color or dry skin Neuro: Denies: numbness in extremities or weakness in extremities Psych: Denies: anxiety Paulie/Lymph: Denies: easy bruising or easy bleeding PFS ED PFSH: Medical History (Updated 06/21/25 @ 13:14 by JENNIFER Guzman) HTN (hypertension) Obstructive sleep apnea No pertinent past medical history Surgical History History of tubal ligation History of cholecystectomy Family History Father Cancer Sister Diabetes Hypertension Brother Hypertension Social History Smoking and tobacco/nicotine status: current every day tobacco/nicotine user cigarettes Packs smoked per day: 1 Years cigarettes smoked: 20 [ Other cigarette details: Quit for approx 15 years & restarted after husabdn and father ] Second hand smoke exposure: No Alcohol intake: never Substance/Drug Use: unknown Adopted: No Caregiver/support person: No Lives independently: Yes Household members: spouse Housing: House Marital status: Number of children: 3 Highest education level completed: High School Graduate service: No Current occupational status: retired Do you think of yourself as: Straight/Heterosexual Current gender identity: Female Physical Exam Const: COMMON NORMALS: no acute distress, patient oriented x3 and alert HENMT: COMMON NORMALS: normocephalic and atraumatic HEAD & SCALP: normocephalic and atraumatic Eye: COMMON NORMALS: Equal, round and reactive pupils present, EOMs intact bilaterally and conjunctivae normal CONJUNCTIVA: Yes conjunctivae normal PUPIL: Yes Equal, round and reactive pupils present Resp: COMMON NORMALS: normal respiratory effort, No retractions and clear to auscultation bilaterally AUSCULTATION: clear to auscultation bilaterally Cardio: COMMON NORMALS: regular rate, regular rhythm and Peripheral pulses 2+ throughout RATE: regular rate RHYTHM: regular rhythm PERIPHERAL PULSES: Peripheral pulses 2+ throughout GI: COMMON NORMALS: Normal to inspection, nondistended, normoactive bowel sounds present Back/Pelvis: LUMBAR SPINE/LOWER BACK: Yes straight leg raise positive right SACROILIAC JOINTS: Yes SI joint(s) abnormal SI joint details: tender to palpation, pain elicited by compression of iliac crest maneuver and pain elicited by passive hyperextension of lower extremity Extremity: COMMON NORMALS: normal to inspection, full ROM and capillary refill normal Neuro: COMMON NORMALS: patient oriented x3 and CN's II-XII intact bilaterally SENSORIUM/ORIENTATION: Yes alert Skin: GENERAL SKIN EXAM: dry skin Course Vital Signs: Vital signs: Vital Signs Temperature 97.5 F L 06/21/25 11:50 Pulse Rate 69 06/21/25 11:50 Respiratory Rate 16 06/21/25 11:50 Blood Pressure 138/85 06/21/25 11:50 Pulse Oximetry 98 06/21/25 11:50 Oxygen Delivery Me thod Room Air 06/21/25 11:50 MDM - Back Pain/Injury Medical Decision Making Patient is a 70-year-old female presents to the emergency room due to lower back pain that radiates to her hip. She has tenderness over her sacroiliac. Clearly associated with sacroiliitis. This has been refractory to tramadol, methocarbamol. Will reduce inflammation, and have patient follow-up with primary care. Medical Records I reviewed the patient's medical records. No radiology studies performed this visit Discharge Plan Discharge Patient Disposition: Home Clinical Impression: Sciatica Qualifiers: Laterality: right Qualified Code(s): M54.31 - Sciatica, right side Condition: Stable Prescriptions: New ketorolac 10 mg tablet 10 mg PO Q8H PRN (Reason: pain) 5 Days Qty: 14 0RF methylprednisolone [Medrol (Americo)] 4 mg tablets,dose pack See Rx Instructions .ROUTE .COMPLEX Qty: 21 0RF Rx Instructions: for 6 days No Action (DME) Auto-titrating CPAP 6-14cm See Rx Instructions .Route .MEDSUPPLY Qty: 1 0RF Rx Instructions: As directed acetaminophen [Arthritis Pain Relief (acetam)] 650 mg tablet extended release 650 mg PO Q12H PRN (Reason: Pain) multivitamin [Daily Multi-Vitamin] Tablet 1 tab PO DAILY citalopram 20 mg tablet 20 mg PO DAILY Qty: 90 1RF methocarbamol 500 mg tablet 500 mg PO TID 14 Days Qty: 42 0RF prednisone 20 mg tablet 20 mg PO DAILY Qty: 15 0RF Rx Instructions: 60mg x 3 days 40mg x 2 days 20mg x 2 days cholecalciferol (vitamin D3) 50 mcg (2,000 unit) capsule 50 mcg PO DAILY Qty: 90 4RF chlorthalidone 25 mg tablet See Rx Instructions .ROUTE .COMPLEX Qty: 90 0RF Dose Instruction: TAKE ONE TABLET BY MOUTH DAILY Rx Instructions: TAKE ONE TABLET BY MOUTH DAILY meloxicam 15 mg tablet See Rx Instructions .ROUTE .COMPLEX Qty: 90 3RF Dose Instruction: TAKE ONE TABLET BY MOUTH DAILY Rx Instructions: TAKE ONE TABLET BY MOUTH DAILY tramadol 50 mg tablet 50 mg PO Q6H PRN (Reason: pain) 5 Days Qty: 20 0RF Discharge Orders: Discharge ED (Routine); Ordered 06/21/25 Ordered By: Aundrea Bridges Referrals: Penelope Beckwith FNP [Primary Care Provider, Family Practice] Discharge Diet: Usual diet Discharge Activity: Increase activity as tolerated Patient Instructions: Sciatica (ED), Patient Portal & Isaias Instructions Activity Restrictions/Additional Instructions: Do not use any other anti-inflammatories: NSAIDs such as ibuprofen, naproxen/Aleve, meloxicam with your prescription sent to the pharmacy: Ketorolac/Toradol. Use as directed. Caution on abdominal discomfort. If overused, may cause ulcers. You may add Tylenol to your medication. Ice will help with pain. Return to ED if you have worsening pain, sensation changes, or incontinence of urine. Thank you for choosing [facility] for your healthcare needs today. You have been screened and evaluated and felt safe for discharge. Health conditions do change or evolve sometimes and as such it is important that you follow up with your Primary Doctor to be re checked, 3-5 days is a general good time frame for follow up. You are always welcome to return to the ED for re assessment if your symptoms are worsening or you have new concerns Print Language: Irish Coding Level of Care Code ED Supervisor Ship Maintenance Services for Shanae Huff
[2025-06-21] MEDS: orphenadrine 30 mg/mL Inj 2 mL IM (13:26)
== END 2025-06-21 13:42 | disposition home or self-care (01) ==
PROVIDERS: Emergency Provider Physician Assistant; PCP Nurse Practitioner Family
DX: M54.31 Sciatica, right side (principal); F17.210 Nicotine dependence, cigarettes, uncomplicated; I10 Essential (primary) hypertension
CPT/HCPCS: 96372; 99284; J1100; J1885; J2360

== ENCOUNTER 2025-08-12 08:56 | Outpatient (CLI) | payer MEDICARE, SELFPAY ==
--- NOTE | 2025-08-12 09:00 | MM_ITS ---
WS: [id number] BILATERAL SCREENING DIGITAL TOMOSYNTHESIS MAMMOGRAM WITH CAD HISTORY: SCREENING COMPARISON: 08/08/2024, 08/01/2023, 07/13/2022 Bilateral CC and MLO views with tomosynthesis and synthetic mammography submitted. Computer aided detection analyzed. Breast composition: There are scattered areas of fibroglandular density. No suspicious masses, microcalcifications or architectural distortion. Benign calcifications in each breast. MM/MM scr tomosynthesis [id number] IMPRESSION: BI-RADS: 2 - Benign. FOLLOW UP: 1 Year Follow-up
== END 2025-08-12 08:57 | disposition home or self-care (01) ==
LOC: MOBLMAM 08:58
PROVIDERS: PCP Nurse Practitioner Family; Visit Provider Nurse Practitioner Family
DX: Z12.31 Encounter for screening mammogram for malignant neoplasm of breast (principal); R92.323 Mammographic fibroglandular density, bilateral breasts; R92.1 Mammographic calcification found on diagnostic imaging of breast
CPT/HCPCS: 77063; 77067